=== PATIENT | male | born 1965 | race Caucasian/White ===

== ENCOUNTER 2016-12-07 17:18 | Emergency (ER) | payer MEDICAID ==
[2016-12-07 19:10] LABS: BASOPHILS 0.4 % (0.0-2.0); EOSINOPHILS 2.8 % (0-7); HEMATOCRIT 47.7 % (42.0-54.0); HEMOGLOBIN 16.1 g/dL (13.5-17.5); LYMPHOCYTES 20.3 % (15-50); MCH 31.4 pg (26.0-34.0); MCHC 33.8 g/dL (31.0-37.0); MCV 93.2 fL (80.0-100.0); MEAN PLATELET VOLUME 10.8 fL (7.4-10.4); MONOCYTES 8.7 % (2-11); NEUTROPHILS 66.8 % (40-80); PLATELET COUNT 175 10x3/uL (130-400); RBC 5.12 10x6/uL (4.20-6.10); RDW 12.4 % (11.5-14.5); WBC 7.8 10x3/uL (4.8-10.8)
[2016-12-07 19:31] LABS: ALBUMIN 3.5 g/dL (3.4-5.0); ALKALINE PHOSPHATASE 64 U/L (46-116); ALT (SGPT) 47 U/L (10-68); BILIRUBIN - TOTAL 0.15 mg/dL (0.2-1.3); CALC OSMOLALITY 278 mosm/kg (275-300); CALCIUM 8.6 mg/dL (8.5-10.1); CARBON DIOXIDE 25.2 mmol/L (21.0-32.0); CHLORIDE - SERUM 104 mmol/L (98-107); CREATININE - SERUM 0.9 mg/dL (0.6-1.3); GLUCOSE 104 mg/dL (74-106); POTASSIUM - SERUM 4.1 mmol/L (3.5-5.1); PROTEIN - SERUM 6.7 g/dL (6.4-8.2); SODIUM 140 mmol/L (136-145); UREA NITROGEN 12 mg/dL (7-18); eGFR NON AFRICAN AMERICAN > 90 mL/min (90-120)
[2016-12-07 19:42] LABS: CHOL - HDL RATIO 6.8 ratio (2.3-4.9); CHOLESTEROL, TOTAL 243 mg/dL (0-200); CKMB 0.7 U/L (0.0-3.6); CREATINE KINASE 52 UL (21-232); HDL CHOLESTEROL 36 mg/dL (32-96); LDL CHOLESTEROL 136 mg/dL (0-100); LDL-HDL RATIO 3.8 ratio (1.5-3.5); PRO BNP 44 pg/mL (0-125); TRIGLYCERIDE 355 mg/dL (30-200)
[2016-12-07 19:44] LABS: TROPONIN-I < 0.017 ng/mL (0.000-0.060)
== END 2016-12-07 22:16 | disposition home or self-care (01) ==
LOC: D.ER 17:18
PROVIDERS: Emergency Medicine
DX: I10 Essential (primary) hypertension (principal); R51 Headache; R07.89 Other chest pain

== ENCOUNTER 2017-02-08 13:00 | Emergency (ER) | payer MEDICAID | END 2017-02-08 15:45 | disposition left against medical advice (07) | LOC: D.ER 13:00 | DX: R09.89 Other specified symptoms and signs involving the circulatory and respiratory systems (principal) ==

== ENCOUNTER 2017-04-20 15:21 | Emergency (ER) | payer OTHER, MEDICAID | END 2017-04-20 16:55 | disposition home or self-care (01) | LOC: D.ER 15:21 | DX: M25.522 Pain in left elbow (principal); S50.02XA Contusion of left elbow, initial encounter; X58.XXXA Exposure to other specified factors, initial encounter; I10 Essential (primary) hypertension ==

== ENCOUNTER 2017-06-08 22:31 | Emergency (ER) | payer MEDICAID ==
[2017-06-08 23:08] LABS: BASOPHILS 0.2 % (0-2); EOSINOPHILS 0.1 % (0-7); IMMATURE GRANULOCYTES 4.4 % (0-5); LYMPHOCYTES 18.1 % (15-50); MCH 31.7 pg (26.0-34.0); MCHC 34.1 g/dL (31.0-37.0); MEAN PLATELET VOLUME 10.3 fL (7.4-10.4); MONOCYTES 8.4 % (2-11); NEUTROPHILS 68.8 % (40-80); PLATELET COUNT 267 10x3/uL (130-400); RBC 4.73 10x6/uL (4.20-6.10); RDW 13.4 % (11.5-14.5); WBC 16.1 10x3/uL (4.8-10.8)
[2017-06-08 23:35] LABS: APPEARANCE CLEAR (CLEAR); BILIRUBIN NEGATIVE (NEGATIVE); COLOR YELLOW (YELLOW); GLUCOSE NEGATIVE (NEGATIVE); KETONE NEGATIVE (NEGATIVE); LEUKOCYTE ESTERASE 1+ (NEGATIVE); NITRITE NEGATIVE (NEGATIVE); PROTEIN TRACE mg/dL (NEGATIVE); UROBILINOGEN NORMAL (NORMAL)
[2017-06-08 23:37] LABS: BACTERIA FEW /hpf (NONE SEEN); EPITHELIAL CELLS 0-5 /hpf (0-5); WHITE CELLS - URINE 0-5 /hpf (0-5)
[2017-06-08 23:39] LABS: ALBUMIN 3.4 g/dL (3.4-5.0); ANION GAP 12.3 mmol/L (8-16); BILIRUBIN - TOTAL 0.1 mg/dL (0.2-1.3); CALCIUM 8.4 mg/dL (8.5-10.1); CARBON DIOXIDE 27.3 mmol/L (21.0-32.0); CREATININE - SERUM 1.2 mg/dL (0.6-1.3); POTASSIUM - SERUM 3.6 mmol/L (3.5-5.1); PROTEIN - SERUM 6.7 g/dL (6.4-8.2)
[2017-06-08 23:42] LABS: URIC ACID CRYSTALS OCC /hpf (NONE SEEN)
== END 2017-06-09 01:13 | disposition home or self-care (01) ==
LOC: D.ER 22:31
PROVIDERS: Emergency Medicine
DX: N20.0 Calculus of kidney (principal); K59.00 Constipation, unspecified; I10 Essential (primary) hypertension; F17.200 Nicotine dependence, unspecified, uncomplicated

== ENCOUNTER 2017-06-14 11:55 | Day surgery (SDC) | payer MEDICAID ==
[~2017-06-14] VITALS: Ht 172.7 cm; Wt 93.9 kg
[2017-06-14] MEDS ORDERED: HYDROCODON-ACE1 EAC7 PO (12:31)
[2017-06-14] MEDS ORDERED: LINZESS145 MCG PO (12:31)
[2017-06-14] MEDS ORDERED: ADVAIR 100/501 DISK INH (12:32)
[2017-06-14] MEDS ORDERED: PROAIR HFA8.5 GM INH (12:32)
[2017-06-14] MEDS ORDERED: LISINOPRIL TAB 10M (12:33)
[2017-06-14 12:55] VITALS: BP 108/80; Ht 172.7 cm; Wt 93.9 kg
--- NOTE | 2017-06-15 09:03 | OP ---
PATIENT NAME: CHARITY MEDINA MEDICAL RECORD: [id number] :61 LOCATION:D.[facility] ADMISSION DATE: SURGEON: REILLY BUNCH MD DATE OF OPERATION: 06/14/2017 SURGEON: Reilly Bunch MD. ANESTHESIA: General anesthesia by Dr. Kaur. PREOPERATIVE DIAGNOSIS: Right renal 13-mm stone. PROCEDURE: Cystoscopy, right ureteral stent insertion, 6-Belarusian x 24 cm, without string attached. FINDINGS: Radiodense right renal stone. COMPLICATIONS: None. BLOOD LOSS: None. SPECIMEN: None. CLINICAL HISTORY: This is a 52-year-old male with no prior history of kidney stones. He came to the Emergency Room 1 week ago with acute right-sided flank pain. This pain continues to go on. A CT scan done in the Emergency Room shows a 13-mm stone in the right renal pelvis near the UP junction. He saw me today and he was still having pain. We will insert a stent today and have him come back for lithotripsy at a future date. He is not allergic to any medications and he was given Ancef 2 g IV on-call to the OR. DESCRIPTION OF PROCEDURE: The patient was given induction of general anesthesia. He was placed in the dorsal lithotomy position and prepped and draped. A 21-Belarusian cystoscope with 30-degree lens was used for visualization. The patient's penile urethra was normal. Prostatic urethra was nonobstructive, although he does have tight bladder neck. Inside the bladder, there was some diffuse bladder inflammation, but no bladder tumors were seen. He has single ureteral orifices on each side. A guidewire was inserted into the right ureteral orifice and pushed up into the right renal pelvis. The stone was somewhat faint to see, we can see a density within the kidney. The stone was displaced laterally by the wire. Over the wire, we inserted the 6-Belarusian x 24 cm ureteral stent. The string on the distal end of the stent was removed prior to insertion of the stent. Once the stent was in correct position, the wire was withdrawn slowly and the proximal end was seen to coil within the renal pelvis. The distal end was pushed into the bladder using the pusher. The wire was entirely withdrawn. The bladder was emptied through the cystoscope and then the scope was removed. The patient was awakened and brought to the recovery room. We will be in contact with him to arrange for lithotripsy of the right kidney stone at a future date. TRANSINT:[id number] Voice Confirmation ID: [id number] DOCUMENT ID: [id number] OPERATIVE REPORT [id number] CHARITY MEDINA ROBERT S MD at 0903 CC: [id number] DICTATION DATE: 06/14/17 170 HAND FINISHER: 06/14/[address] [place] [address] 06/14/17 [place] [id number]
== END 2017-06-14 19:27 | disposition home or self-care (01) ==
LOC: D.OPS 11:55
DX: N20.0 Calculus of kidney (principal); F17.200 Nicotine dependence, unspecified, uncomplicated; J45.909 Unspecified asthma, uncomplicated; I10 Essential (primary) hypertension; J44.9 Chronic obstructive pulmonary disease, unspecified; Z01.812 Encounter for preprocedural laboratory examination

== ENCOUNTER 2017-06-23 09:48 | Day surgery (SDC) | payer MEDICAID ==
[~2017-06-23] VITALS: Ht 172.7 cm; Wt 95.5 kg
[~2017-06-23 09:48] MED LIST: ADVAIR 100/501 DISK INH; HYDROCODON-ACE1 EAC7 PO; LINZESS145 MCG PO; LISINOPRIL TAB 10M; PROAIR HFA8.5 GM INH
[2017-06-23 11:10] VITALS: BP 108/76; Ht 172.7 cm; Wt 95.5 kg
--- NOTE | 2017-06-24 08:58 | OP ---
PATIENT NAME: CHARITY MEDINA MEDICAL RECORD: [id number] :61 LOCATION:D.OPS ADMISSION DATE: SURGEON: REILLY BUNCH MD DATE OF OPERATION: 06/23/2017 SURGEON: Reilly Bunch MD ANESTHESIA: MAC by China Jin CRNA. PROCEDURES: Intravenous pyelogram, right extracorporeal shockwave lithotripsy times 3000 shocks (ESWL). FINDINGS: Faintly radiodense 13-mm right renal pelvis stone. PREOPERATIVE DIAGNOSIS: A 13-mm right renal pelvis stone. SPECIMENS: None. COMPLICATIONS: None. ESTIMATED BLOOD LOSS: None. CLINICAL HISTORY: This is a 52-year-old male, who presented with right flank pain. CT scan showed a 13-mm right renal pelvis stone obstructing the UP junction. He had a right ureteral stent inserted to alleviate his pain. Now, he comes to have the stone treated with ESWL. DESCRIPTION OF PROCEDURE: The patient was placed on the procedure table. Fluoroscopy was performed. We had a difficult time seeing the stone. The stone had been seen on CT. However, it is faint on plain x-rays. We injected IV contrast and with the contrast in place, we were able to definitely identify the stone that is sitting right on top of the coil of the stent. The stone was targeted in 2 planes and 3000 shocks were given to it. The stone was seen to break up as evidenced by an increase in the spread of the area of radiodensity. The patient will try to pass the stone out for the next 2 weeks. I will see him back with a KUB to see if he passed the stone. If he has completely removed the stone in that time, then the stent will be removed at a future date. TRANSINT:[id number] Voice Confirmation ID: [id number] DOCUMENT ID: [id number] REILLY BUNCH MD at 0858 CC: [id number] DICTATION DATE: 06/23/17 1305 RIVETING MACHINE OPERATOR: 06/23/17 1843 [facility] 06/23/17 [facility] [address] [place] [address]
== END 2017-06-23 13:35 | disposition home or self-care (01) ==
LOC: D.OPS 09:48
DX: N20.0 Calculus of kidney (principal); N13.5 Crossing vessel and stricture of ureter without hydronephrosis; Z01.812 Encounter for preprocedural laboratory examination

== ENCOUNTER 2017-07-01 13:22 | Emergency (ER) | payer MEDICAID ==
[2017-06-23 11:10] VITALS: BMI 32.0
== END 2017-07-01 14:57 | disposition home or self-care (01) ==
LOC: D.ER 13:22
DX: N28.9 Disorder of kidney and ureter, unspecified (principal); R10.9 Unspecified abdominal pain; R35.0 Frequency of micturition; I10 Essential (primary) hypertension

== ENCOUNTER → 2017-07-06 11:48 | Outpatient (CLI) | payer MEDICAID ==
[2017-06-23 11:10] VITALS: BMI 32.0
== END | disposition home or self-care (01) ==
LOC: D.RAD 11:45
DX: N20.0 Calculus of kidney (principal)

== ENCOUNTER 2017-07-11 09:05 | Day surgery (SDC) | payer MEDICAID ==
[~2017-07-11] VITALS: Ht 172.7 cm; Wt 93.0 kg
[~2017-07-11 09:05] MED LIST changes: -LISINOPRIL TAB 10M; +LISINOPRIL10 MG PO
[2017-07-11 11:18] LABS: HEMATOCRIT 43.5 % (42.0-54.0); MCH 32.1 pg (26.0-34.0); MCHC 34.5 g/dL (31.0-37.0); MCV 93.1 fL (80.0-100.0); MEAN PLATELET VOLUME 10.2 fL (7.4-10.4); RBC 4.67 10x6/uL (4.20-6.10); WBC 8.7 10x3/uL (4.8-10.8)
[2017-07-11 12:03] VITALS: BP 106/72; Ht 172.7 cm; Wt 93.0 kg
--- NOTE | 2017-07-12 08:51 | OP ---
PATIENT NAME: CHARITY MEDINA MEDICAL RECORD: [id number] :61 LOCATION:D.[facility] ADMISSION DATE: SURGEON: REILLY BUNCH MD DATE OF OPERATION: 07/11/2017 SURGEON: Reilly Bunch MD. ANESTHESIA: MAC by Dr. Billy Paez. PREOPERATIVE DIAGNOSIS: Retained right ureteral stent. POSTOPERATIVE DIAGNOSIS: Retained right ureteral stent. PROCEDURES: Cystoscopy and right ureteral stent removal. SPECIMEN: Right ureteral stent. ESTIMATED BLOOD LOSS: None. COMPLICATIONS: None. CLINICAL HISTORY: This is a 52-year-old male, who initially had a 13-mm stone in the right renal pelvis. He had a right ureteral stent placed and later on he had a right ESWL performed to break up the stone. Follow up KUB shows that the stone was completely gone. He comes now to have the stent removed under sedation. He is not allergic to any medications and he was given Ancef 1 gram IV production expediter to the OR. DESCRIPTION OF PROCEDURE: The patient was given IV sedation. He was then placed into dorsal lithotomy position and prepped and draped. A 21-Kinyarwanda cystoscope with 30-degree lens was used for visualization. Prostatic urethra is nonobstructive. Going into the bladder, we found the stent and grasping forceps were used to entirely remove the stent. The stent was sent to pathology for identification only. The patient was then brought to the preoperative holding area and he will be discharged home. Follow up p.r.n. TRANSINT:[id number] Voice Confirmation ID: [id number] DOCUMENT ID: [id number] REILLY BUNCH MD at 0851 CC: [id number] DICTATION DATE: 07/11/17 1303 3D MODELER: 07/11/17 1835 [facility] 07/11/17 [place] [id number]
== END 2017-07-11 14:45 | disposition home or self-care (01) ==
LOC: D.OPS 09:05
PROVIDERS: Anesthesiology
DX: T19.8XXA Foreign body in other parts of genitourinary tract, initial encounter (principal); F17.200 Nicotine dependence, unspecified, uncomplicated; I10 Essential (primary) hypertension; Z01.812 Encounter for preprocedural laboratory examination

== ENCOUNTER 2017-07-24 19:23 | Emergency (ER) | payer MEDICAID ==
[2017-07-11 12:03] VITALS: BMI 31.2
[2017-07-24 20:26] LABS: APPEARANCE HAZY (CLEAR); BILIRUBIN NEGATIVE (NEGATIVE); COLOR YELLOW (YELLOW); GLUCOSE NEGATIVE (NEGATIVE); KETONE NEGATIVE (NEGATIVE); LEUKOCYTE ESTERASE NEGATIVE (NEGATIVE); NITRITE NEGATIVE (NEGATIVE); UROBILINOGEN NORMAL (NORMAL)
[2017-07-24 20:42] LABS: BACTERIA FEW /hpf (NONE SEEN); EPITHELIAL CELLS RARE /hpf (0-5); PROTEIN TRACE mg/dL (NEGATIVE); RED CELLS - URINE OCC /hpf (0-5); WHITE CELLS - URINE OCC /hpf (0-5)
[2017-07-24 20:43] LABS: URIC ACID CRYSTALS >50 /hpf (NONE SEEN)
[2017-07-24 21:53] LABS: BASOPHILS 0.1 % (0-2); EOSINOPHILS 1.1 % (0-7); HEMATOCRIT 44.6 % (42.0-54.0); HEMOGLOBIN 15.2 g/dL (13.5-17.5); IMMATURE GRANULOCYTES 3.2 % (0-5); LYMPHOCYTES 12.5 % (15-50); MCHC 34.1 g/dL (31.0-37.0); MCV 93.9 fL (80.0-100.0); MEAN PLATELET VOLUME 10.3 fL (7.4-10.4); MONOCYTES 7.9 % (2-11); NEUTROPHILS 75.2 % (40-80); PLATELET COUNT 186 10x3/uL (130-400); RBC 4.75 10x6/uL (4.20-6.10); RDW 12.9 % (11.5-14.5); WBC 14.2 10x3/uL (4.8-10.8)
[2017-07-24 22:07] LABS: ALBUMIN 3.1 g/dL (3.4-5.0); ANION GAP 13.7 mmol/L (8-16); BILIRUBIN - TOTAL 0.28 mg/dL (0.2-1.3); CALCIUM 8.4 mg/dL (8.5-10.1); CARBON DIOXIDE 25.6 mmol/L (21.0-32.0); CREATININE - SERUM 1.4 mg/dL (0.6-1.3); POTASSIUM - SERUM 4.3 mmol/L (3.5-5.1); PROTEIN - SERUM 6.6 g/dL (6.4-8.2)
== END 2017-07-24 22:26 | disposition home or self-care (01) ==
LOC: D.ER 19:23
PROVIDERS: Emergency Medicine
DX: N20.1 Calculus of ureter (principal); I10 Essential (primary) hypertension

== ENCOUNTER 2017-07-25 06:16 | Inpatient (IN) | payer MEDICAID ==
[~2017-07-25] VITALS: Ht 172.7 cm; Wt 95.3 kg
[2017-07-25 10:40] VITALS: BP 85/59; Ht 172.7 cm; Wt 95.3 kg
--- NOTE | 2017-07-25 14:04 | NUR ---
OPA IN AIRWAY ON ADMIT
--- NOTE | 2017-07-26 08:53 | DS ---
PATIENT:CHARITY MEDINA :61 MEDICAL RECORD: [id number] DISCHARGE SUMMARY ADMISSION DATE: 07/25/17 DISCHARGE DATE: 07/25/17 DATE OF ADMISSION: 07/25/2017 DATE OF DISCHARGE: 07/25/2017 DISCHARGE DIAGNOSES: Right renal pelvis stone, possibly uric acid 13 mm in size. PROCEDURE: Cystoscopy, right ureteral stent insertion. CLINICAL HISTORY: This is a 52-year-old male with a known 13 mm right renal pelvis stone. He had been treated with stent insertion and ESWL. The ESWL did not break up the stone at all. His stone is virtually invisible on plain films. He came back with right flank pain after his ureteral stent had been removed. CT scan shows a 13 mm stone persisting in the right renal pelvis obstructing the UP junction. He had another right ureteral stent inserted today. I will start him on urinary alkalinization to dissolve a presumed uric acid stone. TRANSINT:[id number] Voice Confirmation ID: [id number] DOCUMENT ID: [id number] MARIAN BUNCH MD at 0853 CC: [id number] DICTATION DATE: 07/25/17 1402 FRUIT LOADER MACHINE OPERATOR: 07/26/17 0234 [facility] IN 07/25/17 [place] [id number] [place] [address]
--- NOTE | 2017-07-26 08:53 | OP ---
PATIENT NAME: CHARITY MEDINA MEDICAL RECORD: [id number] :61 LOCATION:[facility] ADMISSION DATE:07/25/17 SURGEON: REILLY BUNCH MD DATE OF OPERATION: 07/25/2017 SURGEON: Reilly Bunch MD. ANESTHESIA: TIVA by Pankaj Marquez CRNA. PREOPERATIVE DIAGNOSIS: Right renal pelvis stone, 13 mm. PROCEDURES: Cystoscopy; right retrograde pyelogram; right ureteral stent insertion, 6-Prydeinig x 24 cm without string (at patient's request). SPECIMENS: None. COMPLICATIONS: None. FINDINGS: On retrograde pyelogram, radiolucent stone in the UPJ region. Bifid renal pelvis. No ureteral hydronephrosis. CLINICAL HISTORY: This is a 52-year-old male, who was known to have a 13 mm right renal pelvis stone. I inserted a right ureteral stent on him some time ago and he had right ESWL. At the time of ESWL, the stone was very faint and we treated what we thought was the stone. However, on followup KUB, no stone was visible and I removed the ureteral stent. He came back last night through the Emergency Room with right flank pain. CT scan shows that the 13-mm right renal pelvis stone is in the UP junction and it has not been touched. He also has uric acid crystals in the urine. Most likely, this is a uric acid renal stone. Uric acid stones have the characteristic of being visible on CT scan, but being invisible on plain x-rays. He comes now to have a right ureteral stent inserted to relieve the pain. I will also perform retrograde pyelogram to verify the stone position as a radiolucency. The plan is to alkalinize the urine with potassium citrate to dissolve the uric acid stones. He was given Ancef 2 grams IV denture contour wire specialist to the OR. He has no drug allergies. DESCRIPTION OF PROCEDURE: The patient was given IV sedation. He was placed in the dorsal lithotomy position and prepped and draped. A Uro-Jet lidocaine jelly was inserted into the urethra. A 21-Prydeinig cystoscope with 30-degree lens was used for visualization. He does have a mildly obstructive prostate. The bladder neck is somewhat obstructive. Going into the bladder, no bladder tumors were seen. Single ureteral orifices were seen bilaterally. The stone on fluoroscopy could not be seen. The right ureteral orifice was entered into with a 5-Prydeinig open-ended ureteral catheter. Contrast diluted 1:1 with normal saline was injected in retrograde fashion and this outlined normal ureter on the right side. No filling defects were seen. In the right kidney, the renal pelvis is bifid. However, at the intersection of the 2 moieties, a radiolucency is seen which corresponds to the stone. Through the lumen of the ureteral catheter, we inserted a Sensor wire up to the renal pelvis. The ureteral catheter was then entirely removed, leaving the wire in place. Over the wire, we inserted a 6-Prydeinig x 24 cm ureteral stent. Once the stent was in the renal pelvis level, the wire was slowly withdrawn to allow the proximal end to coil. The coil is in the upper moiety of the bifid renal pelvis. The wire was then entirely removed and the distal end was pushed into the bladder using a pusher. The bladder was emptied through the cystoscope sheath and the scope was removed. OPERATIVE REPORT [id number] CHARITY MEDINA Prior to inserting the stent, the string on the distal end of the stent was removed. The patient does not wish to have a string hanging out of his urethra. I will send him home with pain medications and also potassium citrate 10 mEq p.o. t.i.d. to alkalinize the urine. He will come back to see me in clinic to check his urine pH to make sure that it is above 6.5 at which point a uric acid stone should dissolve. We will have to perform a CT scan at a later time to determine that the stone was entirely dissolved. TRANSINT:[id number] Voice Confirmation ID: [id number] DOCUMENT ID: [id number] REILLY BUNCH MD at 0853 CC: [id number] DICTATION DATE: 07/25/17 1400 REGIONAL INTERMODAL TRUCK DRIVER: 07/25/17 2159 [facility] [place] 07/25/17 [place] [id number] [place] [address]
== END 2017-07-25 16:16 | disposition home or self-care (01) | DRG 694 ==
LOC: D.SDCHOLD 06:16 → D.M2 22:48
PROVIDERS: ADMIT Urology
PROC: 0T768DZ Dilation of Right Ureter with Intraluminal Device, Via Natural or Artificial Opening Endoscopic (ICD-10-PCS; 2017-07-25)
PROC: BT1D1ZZ Fluoroscopy of Right Kidney, Ureter and Bladder using Low Osmolar Contrast (ICD-10-PCS; principal; 2017-07-25 13:00)
DX: N20.0 Calculus of kidney (principal); I10 Essential (primary) hypertension; J44.9 Chronic obstructive pulmonary disease, unspecified; Z72.0 Tobacco use

== ENCOUNTER → 2017-07-28 16:26 | Outpatient (CLI) | payer MEDICAID ==
[2017-07-25 10:40] VITALS: BMI 32.0
== END | disposition home or self-care (01) ==
LOC: D.LABREF 16:26
DX: N39.0 Urinary tract infection, site not specified (principal)

== ENCOUNTER → 2017-08-04 18:36 | Outpatient (CLI) | payer MEDICAID ==
[2017-07-25 10:40] VITALS: BMI 32.0
== END | disposition home or self-care (01) ==
LOC: D.LABREF 18:36
DX: N39.0 Urinary tract infection, site not specified (principal)

== ENCOUNTER → 2017-08-09 17:55 | Outpatient (CLI) | payer MEDICAID ==
[2017-07-25 10:40] VITALS: BMI 32.0
== END | disposition home or self-care (01) ==
LOC: D.LABREF 17:55
DX: N39.0 Urinary tract infection, site not specified (principal)

== ENCOUNTER → 2017-08-12 10:59 | Outpatient (CLI) | payer MEDICAID ==
[2017-07-25 10:40] VITALS: BMI 32.0
[~2017-08-12 10:59] MED LIST changes: +UROCIT-K10 MEQ PO
== END | disposition home or self-care (01) ==
LOC: D.CT 10:59
DX: N20.0 Calculus of kidney (principal)

== ENCOUNTER → 2017-08-17 21:18 | Outpatient (CLI) | payer MEDICAID ==
[2017-07-25 10:40] VITALS: BMI 32.0
== END | disposition home or self-care (01) ==
LOC: D.LABREF 21:18
DX: N39.0 Urinary tract infection, site not specified (principal)

== ENCOUNTER → 2017-08-23 17:29 | Outpatient (CLI) | payer MEDICAID ==
[2017-07-25 10:40] VITALS: BMI 32.0
== END | disposition home or self-care (01) ==
LOC: D.LABREF 17:29
DX: N39.0 Urinary tract infection, site not specified (principal)

== ENCOUNTER → 2017-08-25 15:49 | Outpatient (CLI) | payer MEDICAID ==
[2017-07-25 10:40] VITALS: BMI 32.0
== END | disposition home or self-care (01) ==
LOC: D.CT 15:49
DX: N20.0 Calculus of kidney (principal)

== ENCOUNTER → 2017-08-29 18:08 | Outpatient (CLI) | payer MEDICAID ==
[2017-07-25 10:40] VITALS: BMI 32.0
== END | disposition home or self-care (01) ==
LOC: D.LABREF 18:08
DX: N39.0 Urinary tract infection, site not specified (principal)

== ENCOUNTER 2017-08-31 08:08 | Day surgery (SDC) | payer MEDICAID ==
[2017-08-30 13:56] VITALS: BP 117/84; BMI 30.4
[2017-08-30 14:33] LABS: BASOPHILS 0.1 % (0-2); HEMATOCRIT 40.9 % (42.0-54.0); HEMOGLOBIN 13.8 g/dL (13.5-17.5); LYMPHOCYTES 20.2 % (15-50); MCH 31.5 pg (26.0-34.0); MCHC 33.7 g/dL (31.0-37.0); MCV 93.4 fL (80.0-100.0); MEAN PLATELET VOLUME 10.4 fL (7.4-10.4); MONOCYTES 7.8 % (2-11); NEUTROPHILS 68.9 % (40-80); PLATELET COUNT 154 10x3/uL (130-400); RBC 4.38 10x6/uL (4.20-6.10); RDW 12.8 % (11.5-14.5); WBC 6.9 10x3/uL (4.8-10.8)
[2017-08-30 14:42] LABS: CALC OSMOLALITY 275 mosm/kg (275-300); CALCIUM 8.7 mg/dL (8.5-10.1); CHLORIDE - SERUM 105 mmol/L (98-107); CREATININE - SERUM 0.8 mg/dL (0.6-1.3); GLUCOSE 105 mg/dL (74-106); POTASSIUM - SERUM 4.2 mmol/L (3.5-5.1); SODIUM 138 mmol/L (136-145); UREA NITROGEN 12 mg/dL (7-18); eGFR NON AFRICAN AMERICAN > 90 mL/min (90-120)
--- NOTE | 2017-08-30 15:15 | NUR ---
DR BUNCH OVER TO OUTPATIENT DEPT STATING TO RESCHEDULE PT'S PROCEDURE FOR 10:30 AM. PT'S PROCEDURE CLEARED THROUGH THE OR DEPT JAIR.
--- NOTE | 2017-08-30 15:45 | NUR ---
EXPLAINED TO PT THAT PROCEDURE WAS BEING RESCHEDULED TIL TOMORROW. PT DESTINY STATED DR BUNCH HAD TOLD HIM TO RETURN TOMORROW. DC IV W/CATHETER TIP INTACT IVETTE WELL.
--- NOTE | 2017-08-30 15:47 | NUR ---
PT DC INSTRUCTS GIVEN AND WHEN TO RETURN TOMORROW AM. PT VU PT DC HOME AMBULATED OUT TO WAIT FOR HIS POLICY MANAGER TO PICK [facility] UP [facility].
[2017-08-31 08:39] VITALS: BP 131/82; BMI 30.4
--- NOTE | 2017-08-31 13:45 | NUR ---
1266 DISCHARGE INSTRUCTIONS COMPLETE. PT HAS NO QUESTIONS OR CONCERNS AT THIS TIME. PRESCRIPTION FOR PREDNISONE AND Z DAR GIVEN. ESCORTED OUT BY VOLUNTEER.
--- NOTE | 2017-08-31 19:59 | OP ---
PATIENT NAME: CHARITY MEDINA MEDICAL RECORD: [id number] :61 [facility] DATE: SURGEON: REILLY BUNCH MD DATE OF OPERATION: 08/31/2017 SURGEON: Reilly Bunch MD ANESTHESIA: MAC. PREOPERATIVE DIAGNOSES: Right uric acid renal stone 5 mm, retained right ureteral stent. PROCEDURES: Cystoscopy, right ureteral stent removal. FINDINGS: Nonobstructive prostate, right ureteral stent. SPECIMENS: Right ureteral stent. BLOOD LOSS: None. CLINICAL HISTORY: This is a 52-year-old male, who initially presented with right renal colic. CT scan showed a 13-mm right renal stone. He had a right ureteral stent inserted. During the time of the stent insertion, he was found to have a radiolucent stone. This is characteristic of uric acid. We did attempt lithotripsy on it, but we could not identify and target the stone properly. I started him on a program of urinary alkalinization with potassium citrate. His urine has been up to pH of [address] scan shows that the stone has shrunk to 5 mm now from a previous size of 13 mm. All this time, he has been quite irritated by the presence of the right ureteral stent. At this point, he would prefer to get the right ureteral stent removed and risk the possibility of renal colic occurring if the stone passes down the ureter. He will continue to be on potassium citrate until we have verified that the stone has completely dissolved. He wished to have the stent removed under sedation instead of in the office. DESCRIPTION OF PROCEDURE: The patient was given IV sedation. He was given perioperative antibiotics. We inserted a 21-Turkmen cystoscope with 30-degree lens. The scope identified the stent very easily and we placed a grasping forceps on it and the stent was entirely removed. The entire procedure took under 1 minute. The patient will be seen next week to check on the urine pH to be sure that he is continuing to alkalinize the urine. TRANSINT:[id number] Voice Confirmation ID: [id number] DOCUMENT ID: [id number] REILLY BUNCH MD at 1959 CC: [id number] DICTATION DATE: 08/31/17 1246 ELECTROLYTIC ETCHER: 08/31/17 1259 [facility] 08/31/[address] [address]
== END 2017-08-31 13:35 | disposition home or self-care (01) ==
LOC: D.OPS 08:08
PROVIDERS: Anesthesiology
DX: N20.0 Calculus of kidney (principal); Z46.6 Encounter for fitting and adjustment of urinary device; Z01.812 Encounter for preprocedural laboratory examination

== ENCOUNTER 2017-09-08 19:36 | Emergency (ER) | payer MEDICAID ==
[2017-09-08 20:12] LABS: BASOPHILS 0.2 % (0-2); EOSINOPHILS 0.9 % (0-7); HEMATOCRIT 45.1 % (42.0-54.0); HEMOGLOBIN 15.9 g/dL (13.5-17.5); IMMATURE GRANULOCYTES 2.2 % (0-5); LYMPHOCYTES 22.2 % (15-50); MCH 32.4 pg (26.0-34.0); MCHC 35.3 g/dL (31.0-37.0); MONOCYTES 9.1 % (2-11); NEUTROPHILS 65.4 % (40-80); RDW 12.9 % (11.5-14.5)
[2017-09-08 20:18] LABS: APPEARANCE CLEAR (CLEAR); COLOR YELLOW (YELLOW)
[2017-09-08 20:19] LABS: BILIRUBIN NEGATIVE (NEGATIVE); GLUCOSE NEGATIVE (NEGATIVE); KETONE NEGATIVE (NEGATIVE); NITRITE NEGATIVE (NEGATIVE); PROTEIN NEGATIVE (NEGATIVE); UROBILINOGEN NORMAL (NORMAL)
[2017-09-08 20:20] LABS: ALBUMIN 3.5 g/dL (3.4-5.0); ANION GAP 13.5 mmol/L (8-16); BILIRUBIN - TOTAL 0.15 mg/dL (0.2-1.3); CALCIUM 9.3 mg/dL (8.5-10.1); CARBON DIOXIDE 26.5 mmol/L (21.0-32.0); CREATININE - SERUM 1.1 mg/dL (0.6-1.3); PROTEIN - SERUM 7.4 g/dL (6.4-8.2)
[2017-09-08 20:22] LABS: PLATELET COUNT 222 10x3/uL (130-400); RED CELLS - URINE RARE /hpf (0-5)
== END 2017-09-08 21:47 | disposition home or self-care (01) ==
LOC: D.ER 19:36
PROVIDERS: Emergency Medicine
DX: N23 Unspecified renal colic (principal); N20.0 Calculus of kidney; I10 Essential (primary) hypertension

== ENCOUNTER 2017-11-27 00:42 | Emergency (ER) | payer MEDICAID ==
[2017-11-27 01:21] LABS: BASOPHILS 0.1 % (0-2); EOSINOPHILS 2.4 % (0-7); HEMATOCRIT 42.4 % (42.0-54.0); HEMOGLOBIN 14.4 g/dL (13.5-17.5); IMMATURE GRANULOCYTES 1.4 % (0-5); LYMPHOCYTES 26.6 % (15-50); MCH 32.1 pg (26.0-34.0); MCV 94.4 fL (80.0-100.0); MEAN PLATELET VOLUME 10.1 fL (7.4-10.4); MONOCYTES 7.6 % (2-11); NEUTROPHILS 61.9 % (40-80); PLATELET COUNT 203 10x3/uL (130-400); RBC 4.49 10x6/uL (4.20-6.10); RDW 12.6 % (11.5-14.5); WBC 7.1 10x3/uL (4.8-10.8)
[2017-11-27 01:35] LABS: ALBUMIN 3.3 g/dL (3.4-5.0); ALKALINE PHOSPHATASE 67 U/L (46-116); ALT (SGPT) 24 U/L (10-68); CALC OSMOLALITY 288 mosm/kg (275-300); CALCIUM 9.1 mg/dL (8.5-10.1); CARBON DIOXIDE 26.5 mmol/L (21.0-32.0); CHLORIDE - SERUM 104 mmol/L (98-107); GLUCOSE 164 mg/dL (74-106); PROTEIN - SERUM 6.8 g/dL (6.4-8.2); SODIUM 141 mmol/L (136-145); UREA NITROGEN 23 mg/dL (7-18); eGFR NON AFRICAN AMERICAN 83 mL/min (90-120)
[2017-11-27 01:44] LABS: CREATINE KINASE 38 UL (21-232); PRO BNP 105 pg/mL (0-125)
[2017-11-27 01:46] LABS: TROPONIN-I < 0.017 ng/mL (0.000-0.060)
== END 2017-11-27 02:30 | disposition home or self-care (01) ==
LOC: D.ER 00:42
PROVIDERS: Nurse Practitioner Family
DX: K02.9 Dental caries, unspecified (principal); J20.9 Acute bronchitis, unspecified; J44.9 Chronic obstructive pulmonary disease, unspecified; K08.89 Other specified disorders of teeth and supporting structures; I10 Essential (primary) hypertension

== ENCOUNTER 2017-12-26 11:50 | Emergency (ER) | payer MEDICAID | END 2017-12-26 13:51 | disposition left against medical advice (07) | LOC: D.ER 11:50 | DX: R05 Cough (principal) ==

== ENCOUNTER 2018-01-15 12:51 | Emergency (ER) | payer MEDICAID | END 2018-01-15 14:10 | disposition home or self-care (01) | LOC: D.ER 12:51 | DX: K08.89 Other specified disorders of teeth and supporting structures (principal); I10 Essential (primary) hypertension; J44.9 Chronic obstructive pulmonary disease, unspecified; F17.200 Nicotine dependence, unspecified, uncomplicated ==

== ENCOUNTER 2018-02-01 12:29 | Emergency (ER) | payer MEDICAID | END 2018-02-01 15:12 | disposition left against medical advice (07) | LOC: D.ER 12:29 | DX: M54.5 Low back pain (principal); J44.9 Chronic obstructive pulmonary disease, unspecified; I10 Essential (primary) hypertension ==

== ENCOUNTER 2018-02-11 22:12 | Emergency (ER) | payer MEDICAID | END 2018-02-11 23:52 | disposition home or self-care (01) | LOC: D.ER 22:12 | DX: M54.5 Low back pain (principal); K08.89 Other specified disorders of teeth and supporting structures; J44.9 Chronic obstructive pulmonary disease, unspecified ==

== ENCOUNTER 2018-02-26 15:37 | Inpatient (IN) | payer MEDICAID ==
[~2018-02-26] VITALS: Ht 172.7 cm; Wt 92.1 kg
--- NOTE | ~2018-02-26 | CN ---
PATIENT NAME:CHARITY MEDINA MEDICAL RECORD: [id number] : 61 LOCATION:D.[facility] ADMIT DATE: 02/26/18 ACCOUNT: [id number] CONSULTING PHYSICIAN: MARIAN VALERIO MD REFERRING PHYSICIAN: JOSE WARREN MD DATE OF CONSULTATION: 02/27/2018 PRINCIPAL DIAGNOSIS: Pain. HISTORY OF PRESENT ILLNESS: I was asked to see this patient by Dr. Barron. The patient has diverticulitis. I personally reviewed the CT images. I personally reviewed the CT report. He does have peritonitis with cough and with percussion. This is localized peritonitis. On CT scan, he appears to have a mild form of diverticulitis. There is no evidence of a complicated bout of diverticulitis. No abscess. No significant sigmoid colonic wall thickening. No evidence of a free perforation or microperforation. Symptoms are of recent onset. They are of a moderate intensity. Palpation aggravates. Nothing alleviates. This is a consultation note addendum. For the typed portion of the consult note, please see the chart. This would include the past medical and surgical history, current medications, allergies, social history as well as family history. REVIEW OF SYSTEMS: Positive for back pain. Positive for abdominal pain, positive for flank pain. No nausea, no vomiting, no fever, no chills, no chest pain, no shortness of breath. Review of systems is negative other than as is described above. PHYSICAL EXAMINATION: GENERAL: The patient does not appear acutely ill. He does not appear chronically ill. VITAL SIGNS: Reviewed. EARS: External ears appear normal. EYES: Extraocular movements are intact. NECK: Trachea is midline. CHEST: No intercostal retractions. PULMONARY: Nonlabored, no stridor. ABDOMEN: As described above. No Apple sign. There is a Rovsing sign. EXTREMITIES: No peripheral cyanosis. INTEGUMENT: No rash, no ulcerations. PSYCHIATRIC: Normal affect. NEUROLOGIC: Nonfocal, no lethargy. The patient answers questions appropriately, moves all extremities well. BACK: No thoracic kyphosis. IMPRESSION: Mild diverticulitis. PLAN: No follow up with me is necessary. The patient states that this is his first bout of diverticulitis. I told him that we would operate on him only if he had a complicated bout of diverticulitis with things such as an abscess or perforation or if he had multiple bouts of diverticulitis. His diverticulitis should resolve with a short course of IV antibiotics and then a course of oral antibiotics at home. There is no need for him to follow up with me in the office unless he has a recurrence or an increase in his symptoms. CONSULT REPORT [id number] CHARITY MEDINA TRANSINT:[id number] Voice Confirmation ID: [id number] DOCUMENT ID: [id number] MARIAN VALERIO MD at 1158 CC: [id number] DICTATION DATE: 02/27/182002 VRT MECHANIC: 02/28/18 0158 DIS IN 03/05/18 [facility] [address] [place] [address]
[2018-02-26 16:48] LABS: HEMATOCRIT 50.9 % (42.0-54.0); HEMOGLOBIN 17.7 g/dL (13.5-17.5); MCH 32.1 pg (26.0-34.0); MCHC 34.8 g/dL (31.0-37.0); MCV 92.2 fL (80.0-100.0); MEAN PLATELET VOLUME 10.6 fL (7.4-10.4); PLATELET COUNT 321 10x3/uL (130-400); RBC 5.52 10x6/uL (4.20-6.10); RDW 13.5 % (11.5-14.5); WBC 32.4 10x3/uL (4.8-10.8)
[2018-02-26 17:11] LABS: ALBUMIN 3.9 g/dL (3.4-5.0); ALKALINE PHOSPHATASE 60 U/L (46-116); ALT (SGPT) 21 U/L (10-68); BILIRUBIN - TOTAL 0.35 mg/dL (0.2-1.3); CALC OSMOLALITY 271 mosm/kg (275-300); CALCIUM 9.1 mg/dL (8.5-10.1); CARBON DIOXIDE 20.2 mmol/L (21.0-32.0); CHLORIDE - SERUM 96 mmol/L (98-107); CREATININE - SERUM 1.1 mg/dL (0.6-1.3); GLUCOSE 158 mg/dL (74-106); POTASSIUM - SERUM 4.6 mmol/L (3.5-5.1); PROTEIN - SERUM 7.6 g/dL (6.4-8.2); SODIUM 133 mmol/L (136-145); UREA NITROGEN 22 mg/dL (7-18); eGFR NON AFRICAN AMERICAN 74 mL/min (90-120)
[2018-02-26 17:13] LABS: LYMPHOCYTES 6 % (15-50); MONOCYTES 2 % (2-11); NEUTROPHILS 88 % (40-80); PLATELET ESTIMATE NORMAL; PLATELET MORPHOLOGY GIANT PLTS PRESENT
[2018-02-26 17:21] LABS: LIPASE 264 U/L (73-393); PRO BNP 88 pg/mL (0-125)
[2018-02-26 17:23] LABS: TROPONIN-I < 0.017 ng/mL (0.000-0.060)
[2018-02-26 17:46] LABS: APPEARANCE CLEAR (CLEAR); BILIRUBIN NEGATIVE (NEGATIVE); COLOR YELLOW (YELLOW); GLUCOSE NEGATIVE (NEGATIVE); KETONE NEGATIVE (NEGATIVE); NITRITE NEGATIVE (NEGATIVE); PROTEIN NEGATIVE (NEGATIVE); SPECIFIC GRAVITY 1.015 (1.005-1.020); UROBILINOGEN NORMAL (NORMAL)
[2018-02-26 17:48] LABS: BACTERIA FEW /hpf (NONE SEEN); EPITHELIAL CELLS OCC /hpf (0-5); RED CELLS - URINE >50 /hpf (0-5); WHITE CELLS - URINE 0-5 /hpf (0-5)
[2018-02-26] MEDS ORDERED: LINZESS145 MCG (20:39)
[2018-02-26 20:42] LABS: UDS - COCAINE NEGATIVE QUAL (NEGATIVE); UDS - PCP NEGATIVE QUAL (NEGATIVE)
[2018-02-26 20:45] LABS: UDS - AMPHET NEGATIVE QUAL (NEGATIVE); UDS - BARB NEGATIVE QUAL (NEGATIVE); UDS - BENZO NEGATIVE QUAL (NEGATIVE); UDS - OPIATE POSITIVE QUAL (NEGATIVE); UDS - THC NEGATIVE QUAL (NEGATIVE)
[2018-02-27] VITALS (7 sets, daily range): BP systolic 98–178; BP diastolic 54–75; BMI 32.0
[2018-02-27] MEDS ORDERED: PREDNISONE20 MG PO (00:06)
[2018-02-27] MEDS ORDERED: BACTRIM DS TABL1 TAB PO (00:09)
[2018-02-27 10:00] LABS: BASOPHILS 0.1 % (0-2); EOSINOPHILS 0.5 % (0-7); IMMATURE GRANULOCYTES 1.8 % (0-5); LYMPHOCYTES 11.2 % (15-50); MCH 31.3 pg (26.0-34.0); MCHC 32.9 g/dL (31.0-37.0); MEAN PLATELET VOLUME 10.2 fL (7.4-10.4); MONOCYTES 6.9 % (2-11); NEUTROPHILS 79.5 % (40-80); RDW 13.9 % (11.5-14.5)
[2018-02-27 10:10] LABS: ALBUMIN 3.1 g/dL (3.4-5.0); ANION GAP 13.6 mmol/L (8-16); BILIRUBIN - TOTAL 0.32 mg/dL (0.2-1.3); CALCIUM 8.1 mg/dL (8.5-10.1); CARBON DIOXIDE 28.5 mmol/L (21.0-32.0); CREATININE - SERUM 1.1 mg/dL (0.6-1.3); POTASSIUM - SERUM 4.1 mmol/L (3.5-5.1); PROTEIN - SERUM 6.3 g/dL (6.4-8.2)
[2018-02-27 10:15] LABS: HEMATOCRIT 40.1 % (42.0-54.0); HEMOGLOBIN 13.2 g/dL (13.5-17.5); PLATELET COUNT 209 10x3/uL (130-400); RBC 4.22 10x6/uL (4.20-6.10); WBC 13.1 10x3/uL (4.8-10.8)
[2018-02-28] VITALS (7 sets, daily range): BP systolic 87–117; BP diastolic 54–70; Ht 172.7 cm; Wt 92.1 kg
[2018-02-28 05:28] LABS: BASOPHILS 0.1 % (0-2); EOSINOPHILS 0.6 % (0-7); HEMATOCRIT 39.4 % (42.0-54.0); HEMOGLOBIN 13.2 g/dL (13.5-17.5); IMMATURE GRANULOCYTES 1.9 % (0-5); LYMPHOCYTES 10.9 % (15-50); MCH 31.3 pg (26.0-34.0); MCHC 33.5 g/dL (31.0-37.0); MCV 93.4 fL (80.0-100.0); MEAN PLATELET VOLUME 10.4 fL (7.4-10.4); MONOCYTES 7.7 % (2-11); NEUTROPHILS 78.8 % (40-80); PLATELET COUNT 170 10x3/uL (130-400); RBC 4.22 10x6/uL (4.20-6.10); RDW 13.8 % (11.5-14.5)
[2018-02-28 05:29] LABS: WBC 9.6 10x3/uL (4.8-10.8)
[2018-02-28 05:55] LABS: ALBUMIN 2.6 g/dL (3.4-5.0); ALKALINE PHOSPHATASE 47 U/L (46-116); ALT (SGPT) 15 U/L (10-68); AMYLASE - SERUM 37 U/L (25-115); BILIRUBIN - TOTAL 0.41 mg/dL (0.2-1.3); CALC OSMOLALITY 272 mosm/kg (275-300); CARBON DIOXIDE 25.4 mmol/L (21.0-32.0); CHLORIDE - SERUM 103 mmol/L (98-107); CREATININE - SERUM 0.7 mg/dL (0.6-1.3); GLUCOSE 149 mg/dL (74-106); LIPASE 102 U/L (73-393); POTASSIUM - SERUM 3.8 mmol/L (3.5-5.1); PROTEIN - SERUM 5.8 g/dL (6.4-8.2); SODIUM 136 mmol/L (136-145); UREA NITROGEN 8 mg/dL (7-18); eGFR NON AFRICAN AMERICAN > 90 mL/min (90-120)
[2018-03-01 04:00] VITALS: BP 102/65
[2018-03-01 06:53] LABS: BASOPHILS 0.1 % (0-2); EOSINOPHILS 0.8 % (0-7); HEMATOCRIT 37.1 % (42.0-54.0); HEMOGLOBIN 12.3 g/dL (13.5-17.5); IMMATURE GRANULOCYTES 1.6 % (0-5); LYMPHOCYTES 14.5 % (15-50); MCH 31.2 pg (26.0-34.0); MCHC 33.2 g/dL (31.0-37.0); MCV 94.2 fL (80.0-100.0); MEAN PLATELET VOLUME 10.3 fL (7.4-10.4); MONOCYTES 7.6 % (2-11); NEUTROPHILS 75.4 % (40-80); PLATELET COUNT 144 10x3/uL (130-400); RBC 3.94 10x6/uL (4.20-6.10); RDW 13.7 % (11.5-14.5); WBC 7.6 10x3/uL (4.8-10.8)
[2018-03-01 07:26] LABS: ALBUMIN 2.2 g/dL (3.4-5.0); ALKALINE PHOSPHATASE 47 U/L (46-116); BILIRUBIN - TOTAL 0.24 mg/dL (0.2-1.3); CALCIUM 7.8 mg/dL (8.5-10.1); CARBON DIOXIDE 25.3 mmol/L (21.0-32.0); CHLORIDE - SERUM 104 mmol/L (98-107); CREATININE - SERUM 0.7 mg/dL (0.6-1.3); GLUCOSE 142 mg/dL (74-106); POTASSIUM - SERUM 3.6 mmol/L (3.5-5.1); PROTEIN - SERUM 5.5 g/dL (6.4-8.2); SODIUM 139 mmol/L (136-145); eGFR NON AFRICAN AMERICAN > 90 mL/min (90-120)
[2018-03-01 07:33] LABS: ALT (SGPT) 11 U/L (10-68); CALC OSMOLALITY 276 mosm/kg (275-300); UREA NITROGEN 5 mg/dL (7-18)
[2018-03-01 08:46] VITALS: BP 99/58
[2018-03-01 13:10] VITALS: BP 103/58
[2018-03-01 16:33] VITALS: BP 91/57
[2018-03-01 20:00] VITALS: BP 130/78
[2018-03-02 05:15] VITALS: BP 115/75
[2018-03-02 05:29] LABS: BASOPHILS 0.2 % (0-2); EOSINOPHILS 1.3 % (0-7); HEMATOCRIT 35.1 % (42.0-54.0); HEMOGLOBIN 11.6 g/dL (13.5-17.5); IMMATURE GRANULOCYTES 1.1 % (0-5); LYMPHOCYTES 12.5 % (15-50); MCV 93.9 fL (80.0-100.0); MEAN PLATELET VOLUME 10.1 fL (7.4-10.4); MONOCYTES 7.6 % (2-11); NEUTROPHILS 77.3 % (40-80); PLATELET COUNT 136 10x3/uL (130-400); RBC 3.74 10x6/uL (4.20-6.10); RDW 13.4 % (11.5-14.5); WBC 6.2 10x3/uL (4.8-10.8)
[2018-03-02 05:43] LABS: ALBUMIN 2.2 g/dL (3.4-5.0); ALKALINE PHOSPHATASE 45 U/L (46-116); ALT (SGPT) 13 U/L (10-68); BILIRUBIN - TOTAL 0.22 mg/dL (0.2-1.3); CALC OSMOLALITY 276 mosm/kg (275-300); CALCIUM 7.8 mg/dL (8.5-10.1); CARBON DIOXIDE 26.8 mmol/L (21.0-32.0); CHLORIDE - SERUM 104 mmol/L (98-107); CREATININE - SERUM 0.7 mg/dL (0.6-1.3); GLUCOSE 139 mg/dL (74-106); POTASSIUM - SERUM 3.5 mmol/L (3.5-5.1); PROTEIN - SERUM 5.3 g/dL (6.4-8.2); SODIUM 139 mmol/L (136-145); UREA NITROGEN 4 mg/dL (7-18); eGFR NON AFRICAN AMERICAN > 90 mL/min (90-120)
[2018-03-02 08:52] VITALS: BP 108/77
[2018-03-02 12:21] VITALS: BP 123/76
[2018-03-02 15:50] VITALS: BP 94/57
[2018-03-02 19:53] VITALS: BP 96/66
[2018-03-03 00:56] VITALS: BP 108/60
[2018-03-03 04:04] VITALS: BP 111/68
[2018-03-03 06:06] LABS: BASOPHILS 0 % (0-2); EOSINOPHILS 1.4 % (0-7); HEMATOCRIT 34.4 % (42.0-54.0); HEMOGLOBIN 11.3 g/dL (13.5-17.5); IMMATURE GRANULOCYTES 0.8 % (0-5); LYMPHOCYTES 11.5 % (15-50); MCH 30.9 pg (26.0-34.0); MCHC 32.8 g/dL (31.0-37.0); MEAN PLATELET VOLUME 9.9 fL (7.4-10.4); MONOCYTES 7.9 % (2-11); NEUTROPHILS 78.4 % (40-80); PLATELET COUNT 140 10x3/uL (130-400); RBC 3.66 10x6/uL (4.20-6.10); RDW 13.5 % (11.5-14.5); WBC 5.1 10x3/uL (4.8-10.8)
[2018-03-03 06:26] LABS: ALBUMIN 2.1 g/dL (3.4-5.0); ALKALINE PHOSPHATASE 53 U/L (46-116); ALT (SGPT) 13 U/L (10-68); CALC OSMOLALITY 279 mosm/kg (275-300); CALCIUM 7.9 mg/dL (8.5-10.1); CARBON DIOXIDE 26.9 mmol/L (21.0-32.0); CHLORIDE - SERUM 108 mmol/L (98-107); CREATININE - SERUM 0.7 mg/dL (0.6-1.3); GLUCOSE 139 mg/dL (74-106); POTASSIUM - SERUM 3.5 mmol/L (3.5-5.1); PROTEIN - SERUM 5.4 g/dL (6.4-8.2); SODIUM 141 mmol/L (136-145); UREA NITROGEN 5 mg/dL (7-18); eGFR NON AFRICAN AMERICAN > 90 mL/min (90-120)
[2018-03-03 08:37] VITALS: BP 109/65
[2018-03-03 12:43] VITALS: BP 113/65
[2018-03-03 16:34] VITALS: BP 99/56
[2018-03-03 20:08] VITALS: BP 110/67
[2018-03-04 04:36] VITALS: BP 124/87
[2018-03-04 07:12] LABS: BASOPHILS 0 % (0-2); EOSINOPHILS 1.5 % (0-7); HEMATOCRIT 33.1 % (42.0-54.0); LYMPHOCYTES 11.5 % (15-50); MCH 30.9 pg (26.0-34.0); MCHC 33.2 g/dL (31.0-37.0); MEAN PLATELET VOLUME 9.7 fL (7.4-10.4); MONOCYTES 9.8 % (2-11); NEUTROPHILS 76.2 % (40-80); PLATELET COUNT 140 10x3/uL (130-400); RBC 3.56 10x6/uL (4.20-6.10); RDW 13.5 % (11.5-14.5); WBC 5.2 10x3/uL (4.8-10.8)
[2018-03-04 07:40] LABS: ALBUMIN 2.1 g/dL (3.4-5.0); ALKALINE PHOSPHATASE 50 U/L (46-116); ALT (SGPT) 13 U/L (10-68); BILIRUBIN - TOTAL 0.12 mg/dL (0.2-1.3); CALC OSMOLALITY 280 mosm/kg (275-300); CALCIUM 7.4 mg/dL (8.5-10.1); CARBON DIOXIDE 26.8 mmol/L (21.0-32.0); CHLORIDE - SERUM 106 mmol/L (98-107); CREATININE - SERUM 0.7 mg/dL (0.6-1.3); GLUCOSE 131 mg/dL (74-106); POTASSIUM - SERUM 3.6 mmol/L (3.5-5.1); PROTEIN - SERUM 4.8 g/dL (6.4-8.2); SODIUM 141 mmol/L (136-145); UREA NITROGEN 6 mg/dL (7-18); eGFR NON AFRICAN AMERICAN > 90 mL/min (90-120)
[2018-03-04 09:09] VITALS: BP 137/92
[2018-03-04 12:30] VITALS: BP 163/95
[2018-03-04 15:58] VITALS: BP 134/87
[2018-03-04 20:00] VITALS: BP 136/89
[2018-03-05 04:00] VITALS: BP 129/71
[2018-03-05 04:59] LABS: BASOPHILS 0.2 % (0-2); EOSINOPHILS 1.2 % (0-7); HEMATOCRIT 34.4 % (42.0-54.0); HEMOGLOBIN 11.4 g/dL (13.5-17.5); IMMATURE GRANULOCYTES 0.8 % (0-5); LYMPHOCYTES 13.5 % (15-50); MCH 30.6 pg (26.0-34.0); MCHC 33.1 g/dL (31.0-37.0); MCV 92.5 fL (80.0-100.0); MEAN PLATELET VOLUME 9.7 fL (7.4-10.4); MONOCYTES 9.2 % (2-11); NEUTROPHILS 75.1 % (40-80); PLATELET COUNT 167 10x3/uL (130-400); RBC 3.72 10x6/uL (4.20-6.10); RDW 13.3 % (11.5-14.5); WBC 5.2 10x3/uL (4.8-10.8)
[2018-03-05 05:23] LABS: ALBUMIN 2.2 g/dL (3.4-5.0); ALKALINE PHOSPHATASE 54 U/L (46-116); ALT (SGPT) 14 U/L (10-68); BILIRUBIN - TOTAL 0.17 mg/dL (0.2-1.3); CALC OSMOLALITY 279 mosm/kg (275-300); CALCIUM 8.1 mg/dL (8.5-10.1); CARBON DIOXIDE 27.1 mmol/L (21.0-32.0); CHLORIDE - SERUM 107 mmol/L (98-107); CREATININE - SERUM 0.8 mg/dL (0.6-1.3); GLUCOSE 130 mg/dL (74-106); POTASSIUM - SERUM 3.4 mmol/L (3.5-5.1); PROTEIN - SERUM 5.7 g/dL (6.4-8.2); SODIUM 141 mmol/L (136-145); UREA NITROGEN 5 mg/dL (7-18); eGFR NON AFRICAN AMERICAN > 90 mL/min (90-120)
[2018-03-05 08:57] VITALS: BP 131/73
[2018-03-05 12:22] VITALS: BP 138/77
[2018-03-05] MEDS ORDERED: PROTONIX40 MG PO (12:23)
[2018-03-05] MEDS ORDERED: LEVAQUIN750 MG PO (12:24)
[2018-03-05] MEDS ORDERED: FLORAJEN3 CAPS460 MG PO (12:24)
[2018-03-05] MEDS ORDERED: FLAGYL500 MG PO (12:24)
== END 2018-03-05 14:38 | disposition home or self-care (01) | DRG 392 ==
LOC: D.ER 15:37 → D.MS 18:51 → D.EDHOLD 18:51 → D.MS 20:54
PROVIDERS: Family Medicine
DX: K57.32 Diverticulitis of large intestine without perforation or abscess without bleeding (principal); F17.203 Nicotine dependence unspecified, with withdrawal; E87.2 Acidosis; E87.1 Hypo-osmolality and hyponatremia; J44.9 Chronic obstructive pulmonary disease, unspecified; I10 Essential (primary) hypertension; G89.29 Other chronic pain; M54.5 Low back pain; R31.9 Hematuria, unspecified; N20.0 Calculus of kidney; Z87.442 Personal history of urinary calculi; R79.89 Other specified abnormal findings of blood chemistry

== ENCOUNTER 2018-03-30 07:17 | Day surgery (SDC) | payer MEDICAID ==
[~2018-03-30] VITALS: Ht 172.7 cm; Wt 93.0 kg
--- NOTE | ~2018-03-30 | OP ---
PATIENT NAME: CHARITY MEDINA MEDICAL RECORD: [id number] :61 LOCATION:D.OPS ADMISSION DATE: SURGEON: REILLY BUNCH MD DATE OF OPERATION: 03/30/2018 SURGEON: Reilly Bunch MD ANESTHESIA: MAC by Dr. Billy Paez. DIAGNOSIS: Hematuria. PROCEDURE: Cystoscopy. FINDINGS: 1. Single ureteral orifices bilaterally. No bladder tumors. 2. Obstructive benign prostatic hypertrophy with prominent prosthetic urethral veins. CLINICAL HISTORY: This is a 52-year-old male, who is going to be treated today for right kidney stones. He is going to have lithotripsy. In the meantime, he developed episodes of hematuria. CT scan shows normal kidneys along with a 5-mm stone in the right kidney. KUB shows that the stone is faintly radiodense. He comes today to have cystoscopy and later today, he will have lithotripsy of the right kidney stone. Urine cultures and cytology were negative. He is allergic to AMOXICILLIN. We gave him Levaquin IV pesticide control inspector to the OR. DESCRIPTION OF PROCEDURE: The patient was given IV sedation. He was placed in the dorsal lithotomy position. Cystoscopy was performed using a 21-Malian cystoscope. Penile urethra shows no strictures or tumor. The prostatic urethra shows prominent veins, which are the most likely source of bleeding. He does not have obstructive lateral lobes with the bladder neck is somewhat obstructive. Going into the bladder, single ureteral orifices are seen and no bladder tumors were seen. The bladder was emptied through the scope and then the scope was removed entirely. The patient will have his lithotripsy procedure done later today. TRANSINT:[id number] Voice Confirmation ID: [id number] DOCUMENT ID: [id number] REILLY BUNCH MD at 0832 CC: [id number] DICTATION DATE: 03/30/18 1131 WOOD CARVER: 03/30/18 1548 [facility] 03/30/18 [place] [id number] [place] [address]
[~2018-03-30 07:17] MED LIST changes: +BACTRIM DS TABL1 TAB PO; +FLAGYL500 MG PO; +FLORAJEN3 CAPS460 MG PO; +LEVAQUIN750 MG PO; +LINZESS145 MCG; +PREDNISONE20 MG PO; +PROTONIX40 MG PO
[2018-03-30 08:28] VITALS: BP 106/81; Ht 172.7 cm; Wt 93.0 kg
[2018-03-30] MEDS ORDERED: FLOMAX0.4 MG PO (08:33)
[2018-03-30] MEDS ORDERED: MAG-OX 400 MG400 MG PO (08:34)
[2018-03-30] MEDS ORDERED: HEALTHYLAX17 GM PO (08:34)
== END 2018-03-30 13:05 | disposition home or self-care (01) ==
LOC: D.OPS 07:17 → D.PAN 08:10 → D.OPS 08:10
DX: R31.9 Hematuria, unspecified (principal); N40.1 Benign prostatic hyperplasia with lower urinary tract symptoms; N13.8 Other obstructive and reflux uropathy; N20.0 Calculus of kidney; Z88.0 Allergy status to penicillin; Z01.812 Encounter for preprocedural laboratory examination

== ENCOUNTER → 2018-04-21 14:33 | Outpatient (CLI) | payer MEDICAID ==
[2018-03-30 08:28] VITALS: BMI 31.2
[~2018-04-21 14:33] MED LIST changes: +COLCRYS0.6 MG; +FLOMAX0.4 MG PO; +HEALTHYLAX17 GM PO; +MAG-OX 400 MG400 MG PO; +METOPROLOL TART25 MG PO; +PENICILLIN V P500 MG PO; +PREDNISONE10 MG PO; +TORADOL10 MG PO
== END | disposition home or self-care (01) ==
LOC: D.CT 14:33
DX: N20.0 Calculus of kidney (principal)

== ENCOUNTER → 2018-05-22 07:51 | Outpatient (CLI) | payer MEDICAID ==
[2018-03-30 08:28] VITALS: BMI 31.2
[~2018-05-22 07:51] MED LIST changes: +PRINIVIL20 MG PO
== END | disposition home or self-care (01) ==
LOC: D.MRI 07:51
DX: M54.5 Low back pain (principal)

== ENCOUNTER 2018-06-01 17:14 | Emergency (ER) | payer MEDICAID ==
[~2018-06-01] VITALS: Ht 172.7 cm; Wt 95.5 kg
[~2018-06-01 17:14] MED LIST changes: -COLCRYS0.6 MG; -METOPROLOL TART25 MG PO; -PENICILLIN V P500 MG PO; -PREDNISONE10 MG PO; -PRINIVIL20 MG PO; -TORADOL10 MG PO
[2018-06-01 17:21] VITALS: Ht 172.7 cm; Wt 95.5 kg
[2018-06-01] MEDS ORDERED: METOPROLOL TART25 MG PO (17:25)
[2018-06-01] MEDS ORDERED: COLCRYS0.6 MG (17:29)
[2018-06-01] MEDS ORDERED: PENICILLIN V P500 MG PO (21:49)
[2018-06-01] MEDS ORDERED: PREDNISONE10 MG PO (21:49)
[2018-06-01] MEDS ORDERED: TORADOL10 MG PO (21:49)
[2018-06-01 22:14] VITALS: BP 142/81
== END 2018-06-01 22:07 | disposition home or self-care (01) ==
LOC: D.ER 17:14
DX: M10.9 Gout, unspecified (principal); I10 Essential (primary) hypertension; J44.9 Chronic obstructive pulmonary disease, unspecified; K21.9 Gastro-esophageal reflux disease without esophagitis

== ENCOUNTER 2018-06-16 12:39 | Emergency (ER) | payer MEDICAID ==
[~2018-06-16] VITALS: Ht 172.7 cm; Wt 95.5 kg
[~2018-06-16 12:39] MED LIST changes: +COLCRYS0.6 MG; +METOPROLOL TART25 MG PO; +PENICILLIN V P500 MG PO; +PREDNISONE10 MG PO; +TORADOL10 MG PO
[2018-06-16 12:45] VITALS: Ht 172.7 cm; Wt 95.5 kg
[2018-06-16 13:29] LABS: APTT 22.9 SECONDS (22.8-39.4); BASOPHILS 0.2 % (0-2); EOSINOPHILS 1.6 % (0-7); HEMATOCRIT 45.1 % (42.0-54.0); HEMOGLOBIN 15.2 g/dL (13.5-17.5); IMMATURE GRANULOCYTES 2.6 % (0-5); INR 0.91 (0.85-1.17); LYMPHOCYTES 10.3 % (15-50); MCH 30.6 pg (26.0-34.0); MCHC 33.7 g/dL (31.0-37.0); MCV 90.9 fL (80.0-100.0); MEAN PLATELET VOLUME 10.1 fL (7.4-10.4); MONOCYTES 6.7 % (2-11); NEUTROPHILS 78.6 % (40-80); PLATELET COUNT 179 10x3/uL (130-400); PROTIME 11.9 SECONDS (11.6-15.0); RBC 4.96 10x6/uL (4.20-6.10); WBC 10.1 10x3/uL (4.8-10.8)
[2018-06-16 13:30] LABS: D-DIMER-QUANTITATIVE < 0.27 ug/mLFEU (0.20-0.54)
[2018-06-16 13:31] LABS: ALBUMIN 3.2 g/dL (3.4-5.0); ALKALINE PHOSPHATASE 69 U/L (46-116); ALT (SGPT) 38 U/L (10-68); BILIRUBIN - TOTAL 0.31 mg/dL (0.2-1.3); CALC OSMOLALITY 279 mosm/kg (275-300); CALCIUM 8.8 mg/dL (8.5-10.1); CARBON DIOXIDE 25.5 mmol/L (21.0-32.0); CHLORIDE - SERUM 103 mmol/L (98-107); GLUCOSE 123 mg/dL (74-106); POTASSIUM - SERUM 4.5 mmol/L (3.5-5.1); SODIUM 138 mmol/L (136-145); UREA NITROGEN 21 mg/dL (7-18); eGFR NON AFRICAN AMERICAN 82 mL/min (90-120)
[2018-06-16 13:46] LABS: CKMB 0.5 U/L (0.0-3.6); CREATINE KINASE 21 UL (21-232); MAGNESIUM - SERUM 2.2 mg/dL (1.8-2.4)
[2018-06-16 13:48] LABS: AMYLASE - SERUM 53 U/L (25-115); LIPASE 177 U/L (73-393); PRO BNP 86 pg/mL (0-125); TROPONIN-I < 0.017 ng/mL (0.000-0.060)
[2018-06-16 16:19] VITALS: BP 136/89
[2018-06-16 17:20] LABS: CKMB 0.6 U/L (0.0-3.6); CREATINE KINASE 22 UL (21-232)
[2018-06-16 17:22] LABS: TROPONIN-I < 0.017 ng/mL (0.000-0.060)
== END 2018-06-16 17:40 | disposition home or self-care (01) ==
LOC: D.ER 12:39
PROVIDERS: Family Medicine
DX: R07.9 Chest pain, unspecified (principal); I10 Essential (primary) hypertension; J44.9 Chronic obstructive pulmonary disease, unspecified; F17.200 Nicotine dependence, unspecified, uncomplicated

== ENCOUNTER 2018-07-22 15:50 | Emergency (ER) | payer MEDICAID ==
[~2018-07-22] VITALS: Ht 172.7 cm; Wt 91.6 kg
[2018-07-22 15:53] VITALS: Ht 172.7 cm; Wt 91.6 kg
[2018-07-22 16:50] LABS: BASOPHILS 0.5 % (0-2); EOSINOPHILS 2.7 % (0-7); HEMOGLOBIN 14.4 g/dL (13.5-17.5); IMMATURE GRANULOCYTES 1.9 % (0-5); LYMPHOCYTES 20.9 % (15-50); MCH 30.9 pg (26.0-34.0); MCHC 35.1 g/dL (31.0-37.0); MEAN PLATELET VOLUME 10.4 fL (7.4-10.4); MONOCYTES 9.1 % (2-11); NEUTROPHILS 64.9 % (40-80); RBC 4.66 10x6/uL (4.20-6.10); RDW 13.9 % (11.5-14.5); WBC 7.8 10x3/uL (4.8-10.8)
[2018-07-22 16:55] LABS: PLATELET COUNT 218 10x3/uL (130-400)
[2018-07-22 17:18] LABS: ALBUMIN 3.6 g/dL (3.4-5.0); ALKALINE PHOSPHATASE 81 U/L (46-116); ALT (SGPT) 31 U/L (10-68); BILIRUBIN - TOTAL 0.36 mg/dL (0.2-1.3); CALC OSMOLALITY 278 mosm/kg (275-300); CALCIUM 8.3 mg/dL (8.5-10.1); CARBON DIOXIDE 20.4 mmol/L (21.0-32.0); CHLORIDE - SERUM 100 mmol/L (98-107); CREATININE - SERUM 1.8 mg/dL (0.6-1.3); GLUCOSE 152 mg/dL (74-106); POTASSIUM - SERUM 4.7 mmol/L (3.5-5.1); PROTEIN - SERUM 6.7 g/dL (6.4-8.2); SODIUM 134 mmol/L (136-145); UREA NITROGEN 34 mg/dL (7-18); eGFR NON AFRICAN AMERICAN 42 mL/min (90-120)
[2018-07-22 17:34] LABS: LIPASE 285 U/L (73-393); PRO BNP 52 pg/mL (0-125)
[2018-07-22 17:38] LABS: TROPONIN-I < 0.017 ng/mL (0.000-0.060)
[2018-07-22] MEDS ORDERED: PRINIVIL20 MG PO (17:48)
[2018-07-22 18:33] VITALS: BP 104/72
== END 2018-07-22 18:33 | disposition home or self-care (01) ==
LOC: D.ER 15:50
PROVIDERS: Family Medicine
DX: I95.9 Hypotension, unspecified (principal); E87.2 Acidosis; N28.9 Disorder of kidney and ureter, unspecified; J44.9 Chronic obstructive pulmonary disease, unspecified

== ENCOUNTER → 2018-08-30 09:15 | Outpatient (CLI) | payer OTHER ==
[~2018-08-30 09:15] MED LIST changes: +PRINIVIL20 MG PO
== END | disposition home or self-care (01) ==
LOC: D.RT 08-18 08:00
DX: Z02.71 Encounter for disability determination (principal)

== ENCOUNTER → 2018-09-14 12:11 | Outpatient (CLI) | payer MEDICAID ==
[~2018-09-14 12:11] MED LIST changes: +ANORO ELLIPTA1 EACH INH; +ASPIRIN325 MG PO; +BROMFED-DM COU473 ML PO; +CARDURA4 MG PO; -COLCRYS0.6 MG; +COLCRYS0.6 MG PO; +COMBIVENT RESPIM4 GM INH; +KEFLEX500 MG PO; -LINZESS145 MCG; +NYSTATIN ORAL SU5 ML PO; +PHENERGAN DM SYR5 ML PO; +ZYLOPRIM300 MG PO
== END | disposition home or self-care (01) ==
LOC: D.US 12:11
DX: N28.1 Cyst of kidney, acquired (principal); N20.0 Calculus of kidney; M10.9 Gout, unspecified; I10 Essential (primary) hypertension; Z68.31 Body mass index [BMI] 31.0-31.9, adult

== ENCOUNTER 2018-09-28 18:10 | Observation (INO) | payer MEDICAID ==
[~2018-09-28] VITALS: Ht 172.7 cm; Wt 96.4 kg
--- NOTE | ~2018-09-28 | MORECARE ---
CASE MANAGEMENT DISCHARGE SUMMARY PATIENT: CHARITY MEDINA UNIT: [id number] ADM DATE: 09/28/18 AGE: 53 : 61 SEX: M ROOM/BED: D.2122 AUTHOR: NARCISO SEAMAN PHYSICIAN: REFERRING PHYSICIAN: JOHNNA ETIENNE MD DATE OF SERVICE: 09/29/18 Discharge Plan Patient Name: CHARITY MEDINA [facility] [facility] 1965 Planned Disposition: Home Anticipated Discharge Date: 09/29/18 Discharge Date: 09/29/2018 Expected LOS: 1 Initial Reviewer: [email or web address] Initial Review Date: 09/29/2018 Generated: 09/29/18 6:31 pm Patient Name: CHARITY MEDINA Page [id number] at 1731 All edits/amendments must be made on the electronic document DICTATION DATE: 09/29/181729 INTERNATIONAL GUEST COORDINATOR: CARLOTTA 09/29/181729 RPT#: [id number] DC DATE:09/29/18 STATUS: DIS IN [facility] [address] [facility] [place] [address] END OF REPORT
[~2018-09-28 18:10] MED LIST changes: -ANORO ELLIPTA1 EACH INH; -ASPIRIN325 MG PO; -BROMFED-DM COU473 ML PO; -CARDURA4 MG PO; -COMBIVENT RESPIM4 GM INH; -KEFLEX500 MG PO; -NYSTATIN ORAL SU5 ML PO; -PHENERGAN DM SYR5 ML PO; -ZYLOPRIM300 MG PO
[2018-09-28 18:31] LABS: BASOPHILS 0.2 % (0-2); EOSINOPHILS 1.1 % (0-7); HEMATOCRIT 44.1 % (42.0-54.0); HEMOGLOBIN 15.3 g/dL (13.5-17.5); IMMATURE GRANULOCYTES 1.3 % (0-5); LYMPHOCYTES 26.4 % (15-50); MCH 31.8 pg (26.0-34.0); MCHC 34.7 g/dL (31.0-37.0); MCV 91.7 fL (80.0-100.0); MEAN PLATELET VOLUME 10.9 fL (7.4-10.4); MONOCYTES 6.4 % (2-11); NEUTROPHILS 64.6 % (40-80); PLATELET COUNT 188 10x3/uL (130-400); RBC 4.81 10x6/uL (4.20-6.10); RDW 12.1 % (11.5-14.5); WBC 6.1 10x3/uL (4.8-10.8)
[2018-09-28 18:52] LABS: ALBUMIN 3.8 g/dL (3.4-5.0); ALKALINE PHOSPHATASE 61 U/L (46-116); ALT (SGPT) 39 U/L (10-68); BILIRUBIN - TOTAL 0.17 mg/dL (0.2-1.3); CALC OSMOLALITY 282 mosm/kg (275-300); CALCIUM 9.4 mg/dL (8.5-10.1); CARBON DIOXIDE 27.6 mmol/L (21.0-32.0); CHLORIDE - SERUM 102 mmol/L (98-107); GLUCOSE 151 mg/dL (74-106); POTASSIUM - SERUM 3.6 mmol/L (3.5-5.1); PROTEIN - SERUM 7.6 g/dL (6.4-8.2); SODIUM 139 mmol/L (136-145); UREA NITROGEN 17 mg/dL (7-18); eGFR NON AFRICAN AMERICAN 82 mL/min (90-120)
[2018-09-28 19:02] LABS: CKMB 0.6 U/L (0.0-3.6); CREATINE KINASE 38 UL (21-232)
[2018-09-28 19:09] LABS: INR 0.95 (0.85-1.17); PROTIME 12.4 SECONDS (11.6-15.0)
[2018-09-28 19:12] LABS: TROPONIN-I < 0.017 ng/mL (0.000-0.060)
[2018-09-28] MEDS ORDERED: ZYLOPRIM300 MG PO (23:44)
[2018-09-28] MEDS ORDERED: HYDROCODON-ACE1 EAC7 PO (23:44)
[2018-09-28] MEDS ORDERED: CARDURA4 MG PO (23:44)
[2018-09-28] MEDS ORDERED: BROMFED-DM COU473 ML PO (23:45)
[2018-09-28] MEDS ORDERED: COMBIVENT RESPIM4 GM INH (23:45)
[2018-09-28] MEDS ORDERED: PHENERGAN DM SYR5 ML PO (23:47)
[2018-09-28] MEDS ORDERED: NYSTATIN ORAL SU5 ML PO (23:48)
[2018-09-28] MEDS ORDERED: ANORO ELLIPTA1 EACH INH (23:53)
[2018-09-29] VITALS: BP 133/83
[2018-09-29 01:08] LABS: CKMB 0.5 U/L (0.0-3.6); CREATINE KINASE 36 UL (21-232); TROPONIN-I < 0.017 ng/mL (0.000-0.060)
[2018-09-29 03:07] VITALS: Ht 172.7 cm; Wt 96.4 kg
[2018-09-29 04:00] VITALS: BP 123/77
[2018-09-29 05:15] LABS: BASOPHILS 0.2 % (0-2); HEMATOCRIT 41.4 % (42.0-54.0); HEMOGLOBIN 13.9 g/dL (13.5-17.5); IMMATURE GRANULOCYTES 0.9 % (0-5); LYMPHOCYTES 27.8 % (15-50); MCH 31.1 pg (26.0-34.0); MCHC 33.6 g/dL (31.0-37.0); MCV 92.6 fL (80.0-100.0); MEAN PLATELET VOLUME 11.8 fL (7.4-10.4); MONOCYTES 10.3 % (2-11); NEUTROPHILS 58.8 % (40-80); PLATELET COUNT 178 10x3/uL (130-400); RBC 4.47 10x6/uL (4.20-6.10); RDW 12.3 % (11.5-14.5); WBC 5.6 10x3/uL (4.8-10.8)
[2018-09-29 05:41] LABS: ALBUMIN 3.2 g/dL (3.4-5.0); ALKALINE PHOSPHATASE 53 U/L (46-116); ALT (SGPT) 33 U/L (10-68); BILIRUBIN - TOTAL 0.13 mg/dL (0.2-1.3); CALC OSMOLALITY 281 mosm/kg (275-300); CALCIUM 8.8 mg/dL (8.5-10.1); CARBON DIOXIDE 26.4 mmol/L (21.0-32.0); CHLORIDE - SERUM 105 mmol/L (98-107); CREATININE - SERUM 0.9 mg/dL (0.6-1.3); GLUCOSE 111 mg/dL (74-106); POTASSIUM - SERUM 4.1 mmol/L (3.5-5.1); PROTEIN - SERUM 6.6 g/dL (6.4-8.2); SODIUM 140 mmol/L (136-145); UREA NITROGEN 18 mg/dL (7-18); eGFR NON AFRICAN AMERICAN > 90 mL/min (90-120)
[2018-09-29 08:27] LABS: CKMB 0.3 U/L (0.0-3.6); CREATINE KINASE 29 UL (21-232)
[2018-09-29 08:37] LABS: TROPONIN-I < 0.017 ng/mL (0.000-0.060)
[2018-09-29 09:39] VITALS: BP 129/78
[2018-09-29 11:34] VITALS: BP 90/57
[2018-09-29] MEDS ORDERED: ASPIRIN325 MG PO (12:59)
[2018-09-29] MEDS ORDERED: KEFLEX500 MG PO (13:00)
[2018-09-29] MEDS ORDERED: PREDNISONE10 MG PO (13:00)
== END 2018-09-29 15:13 | disposition home or self-care (01) ==
LOC: D.ER 18:10 → OBSVTIME 20:14 → D.M2 20:14
PROVIDERS: Family Medicine
DX: J44.1 Chronic obstructive pulmonary disease with (acute) exacerbation (principal); Z87.891 Personal history of nicotine dependence; I10 Essential (primary) hypertension; R00.2 Palpitations; R51 Headache

== ENCOUNTER → 2018-10-11 14:38 | Outpatient (CLI) | payer MEDICAID ==
[~2018-10-11 14:38] MED LIST changes: +ANORO ELLIPTA1 EACH INH; +ASPIRIN325 MG PO; +BROMFED-DM COU473 ML PO; +CARDURA4 MG PO; +COMBIVENT RESPIM4 GM INH; +KEFLEX500 MG PO; +NYSTATIN ORAL SU5 ML PO; +PHENERGAN DM SYR5 ML PO; +ZYLOPRIM300 MG PO
== END | disposition home or self-care (01) ==
LOC: D.HCCARDIO 14:38
DX: R07.9 Chest pain, unspecified (principal)

== ENCOUNTER → 2018-10-23 10:18 | Outpatient (CLI) | payer MEDICAID | END | disposition home or self-care (01) | LOC: D.HCCARDIO 10:18 | DX: R07.9 Chest pain, unspecified (principal) ==

== ENCOUNTER 2018-12-01 14:53 | Emergency (ER) | payer MEDICAID ==
[2018-09-29 03:07] VITALS: Ht 172.7 cm; Wt 97.7 kg
[~2018-12-01] VITALS: Ht 172.7 cm; Wt 97.7 kg
[2018-12-01 15:27] LABS: BASOPHILS 0.3 % (0-2); EOSINOPHILS 1.4 % (0-7); HEMATOCRIT 41.5 % (42.0-54.0); HEMOGLOBIN 14.2 g/dL (13.5-17.5); IMMATURE GRANULOCYTES 1.6 % (0-5); LYMPHOCYTES 18.3 % (15-50); MCH 31.1 pg (26.0-34.0); MCHC 34.2 g/dL (31.0-37.0); MEAN PLATELET VOLUME 10.1 fL (7.4-10.4); MONOCYTES 8.4 % (2-11); PLATELET COUNT 206 10x3/uL (130-400); RBC 4.56 10x6/uL (4.20-6.10); RDW 13.7 % (11.5-14.5); WBC 6.3 10x3/uL (4.8-10.8)
[2018-12-01 15:42] LABS: ALBUMIN 3.5 g/dL (3.4-5.0); ANION GAP 12.2 mmol/L (8-16); BILIRUBIN - TOTAL 0.24 mg/dL (0.2-1.3); CALCIUM 8.7 mg/dL (8.5-10.1); CREATININE - SERUM 1.3 mg/dL (0.6-1.3); POTASSIUM - SERUM 4.2 mmol/L (3.5-5.1); PROTEIN - SERUM 7.7 g/dL (6.4-8.2); URIC ACID 3.4 mg/dL (2.6-7.2)
[2018-12-01 18:28] LABS: APPEARANCE CLEAR (CLEAR); BILIRUBIN NEGATIVE (NEGATIVE); COLOR YELLOW (YELLOW); GLUCOSE NEGATIVE (NEGATIVE); KETONE NEGATIVE (NEGATIVE); NITRITE NEGATIVE (NEGATIVE); PROTEIN NEGATIVE (NEGATIVE); SPECIFIC GRAVITY 1.025 (1.005-1.020); UROBILINOGEN NORMAL (NORMAL)
[2018-12-01 19:01] VITALS: BP 142/78
[2018-12-02] MEDS ORDERED: ULORIC80 MG PO (08:13)
[2018-12-02] MEDS ORDERED: UROCIT-K10 MEQ (08:13)
[2018-12-02] MEDS ORDERED: ANORO ELLIPTA1 EACH INH (08:14)
[2018-12-02] MEDS ORDERED: ZANAFLEX4 MG PO (08:14)
== END 2018-12-01 19:02 | disposition home or self-care (01) ==
LOC: D.ER 14:53
PROVIDERS: Family Medicine
DX: M54.5 Low back pain (principal); N28.1 Cyst of kidney, acquired

== ENCOUNTER 2019-02-05 22:42 | Emergency (ER) | payer MEDICAID ==
[~2019-02-05] VITALS: Ht 172.7 cm; Wt 97.5 kg
[~2019-02-05 22:42] MED LIST changes: +ULORIC80 MG PO; +UROCIT-K10 MEQ; +ZANAFLEX4 MG PO
[2019-02-05 23:07] VITALS: Ht 172.7 cm; Wt 97.5 kg
[2019-02-05] MEDS ORDERED: ZYLOPRIM100 MG PO (23:11)
[2019-02-06] MEDS ORDERED: PENICILLIN V P500 MG PO (01:49)
[2019-02-06] MEDS ORDERED: HYDROCODON-ACE1 EAC2 PO (01:49)
[2019-02-06 01:57] VITALS: BP 160/98
== END 2019-02-06 02:09 | disposition home or self-care (01) ==
LOC: D.ER 22:42
DX: K02.9 Dental caries, unspecified (principal); K05.10 Chronic gingivitis, plaque induced

== ENCOUNTER 2019-04-07 20:02 | Inpatient (IN) | payer MEDICAID ==
[~2019-04-07] VITALS: Ht 172.7 cm; Wt 96.4 kg
[~2019-04-07 20:02] MED LIST changes: +HYDROCODON-ACE1 EAC2 PO; +ZYLOPRIM100 MG PO
[2019-04-07 20:31] LABS: BASOPHILS 0.1 % (0-2); EOSINOPHILS 1.1 % (0-7); HEMATOCRIT 44.2 % (42.0-54.0); HEMOGLOBIN 15.1 g/dL (13.5-17.5); LYMPHOCYTES 24.9 % (15-50); MCH 30.3 pg (26.0-34.0); MCHC 34.2 g/dL (31.0-37.0); MCV 88.8 fL (80.0-100.0); MEAN PLATELET VOLUME 10.2 fL (7.4-10.4); MONOCYTES 8.5 % (2-11); NEUTROPHILS 64.4 % (40-80); PLATELET COUNT 195 10x3/uL (130-400); RBC 4.98 10x6/uL (4.20-6.10); RDW 13.7 % (11.5-14.5); WBC 7.9 10x3/uL (4.8-10.8)
[2019-04-07 20:44] LABS: APPEARANCE CLEAR (CLEAR); BILIRUBIN NEGATIVE (NEGATIVE); COLOR YELLOW (YELLOW); GLUCOSE NEGATIVE (NEGATIVE); KETONE NEGATIVE (NEGATIVE); NITRITE NEGATIVE (NEGATIVE); PROTEIN NEGATIVE (NEGATIVE); UROBILINOGEN NORMAL (NORMAL)
[2019-04-07 21:01] LABS: ALBUMIN 3.6 g/dL (3.4-5.0); ALKALINE PHOSPHATASE 83 U/L (46-116); ALT (SGPT) 23 U/L (10-68); AMYLASE - SERUM 41 U/L (25-115); BILIRUBIN - TOTAL 0.35 mg/dL (0.2-1.3); CALC OSMOLALITY 272 mosm/kg (275-300); CALCIUM 8.7 mg/dL (8.5-10.1); CARBON DIOXIDE 24.8 mmol/L (21.0-32.0); CHLORIDE - SERUM 98 mmol/L (98-107); CREATININE - SERUM 1.2 mg/dL (0.6-1.3); LIPASE 156 U/L (73-393); POTASSIUM - SERUM 3.5 mmol/L (3.5-5.1); PROTEIN - SERUM 7.5 g/dL (6.4-8.2); SODIUM 135 mmol/L (136-145); TROPONIN-I < 0.017 ng/mL (0.000-0.060); UREA NITROGEN 17 mg/dL (7-18); eGFR NON AFRICAN AMERICAN 66 mL/min (90-120)
[2019-04-07 21:03] LABS: GLUCOSE 125 mg/dL (74-106)
[2019-04-07 22:01] VITALS: BP 121/73
[2019-04-08] MEDS ORDERED: FUROSEMIDE20 MG PO (01:01)
[2019-04-08 01:36] VITALS: BP 103/71; Ht 172.7 cm; Wt 96.4 kg
[2019-04-08 08:05] VITALS: BP 102/68
[2019-04-08 11:53] VITALS: BP 115/74
[2019-04-08 15:06] VITALS: BP 88/37
[2019-04-08 15:13] VITALS: BP 120/72
[2019-04-08 20:22] VITALS: BP 100/59
[2019-04-09 06:02] VITALS: BP 97/60
[2019-04-09 06:09] LABS: BASOPHILS 0.3 % (0-2); EOSINOPHILS 2.3 % (0-7); HEMOGLOBIN 12.8 g/dL (13.5-17.5); IMMATURE GRANULOCYTES 1.3 % (0-5); MCHC 33.7 g/dL (31.0-37.0); MCV 89.2 fL (80.0-100.0); MEAN PLATELET VOLUME 10.3 fL (7.4-10.4); MONOCYTES 9.3 % (2-11); NEUTROPHILS 58.8 % (40-80); RBC 4.26 10x6/uL (4.20-6.10); RDW 13.7 % (11.5-14.5)
[2019-04-09 06:11] LABS: PLATELET COUNT 145 10x3/uL (130-400)
[2019-04-09 06:53] LABS: ALKALINE PHOSPHATASE 69 U/L (46-116); ALT (SGPT) 20 U/L (10-68); BILIRUBIN - TOTAL 0.31 mg/dL (0.2-1.3); CALC OSMOLALITY 281 mosm/kg (275-300); CALCIUM 8.2 mg/dL (8.5-10.1); CARBON DIOXIDE 29.9 mmol/L (21.0-32.0); CHLORIDE - SERUM 104 mmol/L (98-107); GLUCOSE 105 mg/dL (74-106); MAGNESIUM - SERUM 1.7 mg/dL (1.8-2.4); POTASSIUM - SERUM 3.6 mmol/L (3.5-5.1); PROTEIN - SERUM 6.4 g/dL (6.4-8.2); SODIUM 141 mmol/L (136-145); UREA NITROGEN 15 mg/dL (7-18)
[2019-04-09 07:05] LABS: CREATININE - SERUM 0.8 mg/dL (0.6-1.3); eGFR NON AFRICAN AMERICAN > 90 mL/min (90-120)
[2019-04-09 09:00] VITALS: BP 121/77
[2019-04-09] MEDS ORDERED: PRINIVIL20 MG PO (12:23)
[2019-04-09] MEDS ORDERED: LEVAQUIN750 MG PO (12:24)
[2019-04-09] MEDS ORDERED: FLAGYL500 MG PO (12:25)
== END 2019-04-09 13:59 | disposition home or self-care (01) | DRG 392 ==
LOC: D.ER 20:02 → D.MS 23:47
PROVIDERS: Emergency Medicine; Family Medicine; ADMIT Internal Medicine Nephrology; ATTEND Internal Medicine Nephrology
DX: K57.32 Diverticulitis of large intestine without perforation or abscess without bleeding (principal); I10 Essential (primary) hypertension; I48.91 Unspecified atrial fibrillation; J44.9 Chronic obstructive pulmonary disease, unspecified; M54.5 Low back pain

== ENCOUNTER → 2019-04-16 10:47 | Outpatient (CLI) | payer MEDICAID ==
[2019-04-08 01:36] VITALS: BMI 32.3
[~2019-04-16 10:47] MED LIST changes: +FUROSEMIDE20 MG PO
== END | disposition home or self-care (01) ==
LOC: D.NM 10:47
PROVIDERS: ATTEND Internal Medicine Gastroenterology
DX: R10.9 Unspecified abdominal pain (principal)

== ENCOUNTER 2020-01-25 20:42 | Emergency (ER) | payer OTHER ==
[~2020-01-25] VITALS: Ht 152.4 cm; Wt 87.7 kg
[2020-01-25 20:48] VITALS: Ht 152.4 cm; Wt 87.7 kg
[2020-01-25 21:21] LABS: BASOPHILS 0.1 % (0-2); EOSINOPHILS 1.2 % (0-7); LYMPHOCYTES 23.6 % (15-50); MCH 32.6 pg (26.0-34.0); MCHC 34.1 g/dL (31.0-37.0); MCV 95.6 fL (80.0-100.0); MEAN PLATELET VOLUME 9.7 fL (7.4-10.4); NEUTROPHILS 61.1 % (40-80); RBC 4.29 10x6/uL (4.20-6.10); RDW 12.9 % (11.5-14.5); WBC 9.5 10x3/uL (4.8-10.8)
[2020-01-25 21:27] LABS: APTT 22.5 SECONDS (22.8-39.4); CALC OSMOLALITY 269 mosm/kg (275-300); CALCIUM 8.9 mg/dL (8.5-10.1); CARBON DIOXIDE 24.7 mmol/L (21.0-32.0); CHLORIDE - SERUM 101 mmol/L (98-107); GLUCOSE 126 mg/dL (74-106); INR 0.87 (0.85-1.17); POTASSIUM - SERUM 4.8 mmol/L (3.5-5.1); PROTIME 11.8 SECONDS (11.6-15.0); SODIUM 133 mmol/L (136-145); UREA NITROGEN 19 mg/dL (7-18); eGFR NON AFRICAN AMERICAN 82 mL/min (90-120)
[2020-01-25 21:31] LABS: PLATELET COUNT 226 10x3/uL (130-400)
[2020-01-25 21:44] LABS: ALBUMIN 3.5 g/dL (3.4-5.0); ALKALINE PHOSPHATASE 84 U/L (30-120); ALT (SGPT) 21 U/L (10-68); BILIRUBIN - TOTAL 0.25 mg/dL (0.2-1.3); CKMB 0.4 U/L (0.0-3.6); CREATINE KINASE 32 UL (21-232); MAGNESIUM - SERUM 1.9 mg/dL (1.8-2.4); TROPONIN-I < 0.017 ng/mL (0.000-0.060)
[2020-01-25 21:45] LABS: SPECIFIC GRAVITY 1.015 (1.005-1.020)
[2020-01-25 22:00] LABS: BILIRUBIN NEGATIVE (NEGATIVE); GLUCOSE NEGATIVE (NEGATIVE); KETONE NEGATIVE (NEGATIVE); NITRITE NEGATIVE (NEGATIVE); UROBILINOGEN NORMAL (NORMAL)
[2020-01-25] MEDS ORDERED: TORADOL10 MG PO (22:54)
[2020-01-25] MEDS ORDERED: STERAPRED DS 1010 MG PO (22:54)
[2020-01-25 23:28] VITALS: BP 110/66
== END 2020-01-25 23:29 | disposition home or self-care (01) ==
LOC: D.ER 20:42
PROVIDERS: Family Medicine
DX: J44.1 Chronic obstructive pulmonary disease with (acute) exacerbation (principal); I10 Essential (primary) hypertension; I48.91 Unspecified atrial fibrillation; R07.9 Chest pain, unspecified

== ENCOUNTER 2020-03-13 21:14 | Emergency (ER) | payer OTHER ==
[~2020-03-13] VITALS: Ht 152.4 cm; Wt 86.2 kg
[~2020-03-13 21:14] MED LIST changes: +STERAPRED DS 1010 MG PO
[2020-03-13 21:29] LABS: BASOPHILS 0.2 % (0-2); EOSINOPHILS 1.2 % (0-7); HEMATOCRIT 41.5 % (42.0-54.0); HEMOGLOBIN 13.9 g/dL (13.5-17.5); IMMATURE GRANULOCYTES 4.4 % (0-5); LYMPHOCYTES 29.5 % (15-50); MCHC 33.5 g/dL (31.0-37.0); MCV 95.4 fL (80.0-100.0); MEAN PLATELET VOLUME 9.8 fL (7.4-10.4); MONOCYTES 12.7 % (2-11); PLATELET COUNT 198 10x3/uL (130-400); RBC 4.35 10x6/uL (4.20-6.10); RDW 13.6 % (11.5-14.5); WBC 8.3 10x3/uL (4.8-10.8)
[2020-03-13 21:41] VITALS: Ht 152.4 cm; Wt 86.2 kg
[2020-03-13 21:45] LABS: INR 0.94 (0.85-1.17); PROTIME 12.5 SECONDS (11.6-15.0)
[2020-03-13] MEDS ORDERED: GLUCOPHAGE1000 MG PO (21:45)
[2020-03-13] MEDS ORDERED: CLARITIN 10 MG10 MG PO (21:46)
[2020-03-13 21:49] LABS: CALC OSMOLALITY 270 mosm/kg (275-300); CALCIUM 8.9 mg/dL (8.5-10.1); CARBON DIOXIDE 21.2 mmol/L (21.0-32.0); CHLORIDE - SERUM 100 mmol/L (98-107); CREATININE - SERUM 1.1 mg/dL (0.6-1.3); GLUCOSE 111 mg/dL (74-106); POTASSIUM - SERUM 4.4 mmol/L (3.5-5.1); SODIUM 134 mmol/L (136-145); UREA NITROGEN 18 mg/dL (7-18); eGFR NON AFRICAN AMERICAN 73 mL/min (90-120)
[2020-03-13 22:05] LABS: ALBUMIN 3.7 g/dL (3.4-5.0); ALKALINE PHOSPHATASE 76 U/L (30-120); ALT (SGPT) 32 U/L (10-68); BILIRUBIN - TOTAL 0.23 mg/dL (0.2-1.3); CKMB 0.8 U/L (0.0-3.6); CREATINE KINASE 42 UL (21-232); MAGNESIUM - SERUM 1.8 mg/dL (1.8-2.4); PROTEIN - SERUM 7.1 g/dL (6.4-8.2)
[2020-03-13 22:06] LABS: TROPONIN-I < 0.017 ng/mL (0.000-0.060)
[2020-03-14 02:43] VITALS: BP 122/77
== END 2020-03-14 02:47 | disposition other institution (70) ==
LOC: D.ER 21:14
PROVIDERS: Family Medicine
DX: R07.9 Chest pain, unspecified (principal); I10 Essential (primary) hypertension; I48.91 Unspecified atrial fibrillation; J44.9 Chronic obstructive pulmonary disease, unspecified

== ENCOUNTER → 2020-03-19 08:50 | Outpatient (CLI) | payer OTHER ==
[2020-03-13 21:41] VITALS: BMI 37.7
[~2020-03-19 08:50] MED LIST changes: +CLARITIN 10 MG10 MG PO; +GLUCOPHAGE1000 MG PO
== END | disposition home or self-care (01) ==
LOC: D.HCCARDIO 08:50
PROVIDERS: ATTEND Internal Medicine Cardiovascular Disease
DX: R07.9 Chest pain, unspecified (principal)

== ENCOUNTER 2020-06-05 04:04 | Emergency (ER) | payer OTHER ==
[~2020-06-05] VITALS: Ht 152.4 cm; Wt 95.5 kg
[2020-06-05 04:20] VITALS: BP 102/69; Ht 152.4 cm; Wt 95.5 kg
[2020-06-05] MEDS ORDERED: ORAL ANALGESIC9 GM TOPICAL (04:23)
[2020-06-05] MEDS ORDERED: KEFLEX500 MG PO (04:23)
[2020-06-05] MEDS ORDERED: PREDNISONE20 MG PO (08:53)
== END 2020-06-05 04:30 | disposition home or self-care (01) ==
LOC: D.ER 04:04
DX: J40 Bronchitis, not specified as acute or chronic (principal); J44.9 Chronic obstructive pulmonary disease, unspecified; R06.02 Shortness of breath; E11.9 Type 2 diabetes mellitus without complications; I10 Essential (primary) hypertension; Z72.0 Tobacco use; Z79.84 Long term (current) use of oral hypoglycemic drugs; K08.89 Other specified disorders of teeth and supporting structures

== ENCOUNTER 2020-06-05 07:49 | Emergency (ER) | payer OTHER ==
[~2020-06-05] VITALS: Ht 172.7 cm; Wt 95.5 kg
[~2020-06-05 07:49] MED LIST changes: +ORAL ANALGESIC9 GM TOPICAL
[2020-06-05 08:01] VITALS: Ht 172.7 cm; Wt 95.5 kg
[2020-06-05] MEDS ORDERED: PREDNISONE20 MG PO (08:53)
[2020-06-05 09:11] VITALS: BP 138/75
== END 2020-06-05 09:11 | disposition home or self-care (01) ==
LOC: D.ER 07:49
DX: J44.0 Chronic obstructive pulmonary disease with (acute) lower respiratory infection (principal); E11.9 Type 2 diabetes mellitus without complications; I10 Essential (primary) hypertension; I48.91 Unspecified atrial fibrillation; Z72.0 Tobacco use; Z79.84 Long term (current) use of oral hypoglycemic drugs; K08.89 Other specified disorders of teeth and supporting structures